=== PATIENT | male | born 1940 | race Caucasian/White ===

== ENCOUNTER 2017-03-20 17:36 | Inpatient (IN) | payer MEDICARE ==
[2017-03-20 17:37] VITALS: BMI 28.4
[2017-03-20] MEDS ORDERED: Sodium Chloride 0.9% 500 ML IV ONE (18:22)
[2017-03-20 18:47] LABS: VENOUS BLOOD GAS BASE EXCESS 6.6 mmol/L (0.0-2.0); VENOUS BLOOD GAS PCO2 50 mmHg (40-60); VENOUS BLOOD PH 7.42 (7.32-7.43)
[2017-03-20 18:49] LABS: BASO % 0.4 % (0.0-2.0); HEMATOCRIT 42.2 % (35.0-51.0); LYMPH # 0.8 K/uL (1.0-4.3); LYMPH % 6.6 % (20.0-40.0); MEAN CELL VOLUME 99.2 fl (80.0-94.0); MEAN CORPUSCULAR HEMOGLOBIN 32.8 pg (27.0-31.0); MEAN PLATELET VOLUME 8.3 fl (7.2-11.7); MONO # 0.7 K/uL (0.0-0.8); MONO % 5.6 % (0.0-10.0); NEUT # 10.6 K/uL (1.8-7.0); NEUT % 87.4 % (50.0-75.0); PLATELET COUNT 208 K/uL (130-400); RED CELL DISTRIBUTION WIDTH 13.6 % (11.5-14.5); WHITE BLOOD COUNT 12.1 K/uL (4.8-10.8)
--- NOTE | 2017-03-20 19:02 | ED PDOC ---
HPI: Neurologic - General Chief Complaint (Provider): generalized weakness Source: patient - History of Present Illness Timing/Duration: other (2 days) Associated Symptoms: fever/chills, trouble walking, weakness. denies: confusion , loss of consciousness, nausea/vomiting, numbness in legs/feet, vision changes Additional Complaint(s): Pt is a 76 yo M with PMH DM2, BPH, HTN, HLD, TIA? (in 1996? pt does not recall) presenting to ED after being sent from PMD's office by PMD Dr. Farmer. Pt complains of generalized weakness x2 days, and reports two falls this morning while inside and outside of the grocery store; pt states that he felt "weak" and "lost balance and coordination." Pt did not hit his head when he fell, did not lose consciousness either fall; was caught one time by friend and helped up the second time. When pt went to see PMD, he was told he looks pale and not well /not like himself, and to come to the ED. Denies chest pain, sob, blurry vision/changes in vision, abdominal pain, nausea , vomiting, diarrhea, issues with urination like burning or pain or any other general complaints aside from weakness. Spoke to pt's PMD, who mentioned that pt also spoke of darker stools at visit. <Lali Alvarenga - Last Filed: 03/20/17 22:35> <Michael Ramirez - Last Filed: 03/20/17 23:02> - General Time Seen by Provider: 03/20/17 17:58 Chief Complaint (Nursing): Abdominal Pain - History of Present Illness Allergies/Adverse Reactions: Allergies chlorpheniramine [From Contac Cold-Flu Day and Night] Allergy (Verified 17:51) RASH phenylephrine HCl [From Contac Cold-Flu Day and Night] Allergy (Verified 17:51) RASH Home Medications: Ambulatory Orders No Known Home Med 03/20/17 Supervising Attending Note - Attestation: I have personally seen and examined this patient.: Yes I have fully participated in the care of the patient.: Yes I have reviewed all pertinent clinical information, including history, physical exam and plan: Yes - Notes: Notes:: PT. seen and examined at bedside, explained results of imaging. Case discussed with Dr. Farmer who agrees to admission. Dx: RLL PNA <Michael Ramirez - Last Filed: 03/20/17 23:02> Past Medical History Vital Signs: Last Vital Signs Temp 102.3 F H 03/20/17 17:48 Pulse 78 03/20/17 17:48 Resp 20 03/20/17 17:48 BP 115/53 L 03/20/17 17:48 Pulse Ox 95 03/20/17 17:48 - Medical History PMH: Benign Prostatic Hyperplasia, Diabetes, Fractures (1950 orif right arm), HTN, Hypercholesterolemia, Sleep Apnea (c pap does not use), TIA (11 years ago) Denies: Chronic Kidney Disease - Surgical History Other surgeries: bilateral cataract - Family History Family History: States: [place] (brother, age 50), Other Denies: Stroke Other Family History: father: prostate cancer - Social History Ex-Smoker (has not smoked in the last 12 months): Yes (has not smoked in 15 yrs) Alcohol: Social Drugs: Denies - Immunization History Hx Tetanus Toxoid Vaccination: No Hx Influenza Vaccination: No Hx Pneumococcal Vaccination: No <Lali Alvarenga - Last Filed: 03/20/17 22:35> Vital Signs: Last Vital Signs Temp 98.3 F 03/20/17 22:53 Pulse 59 L 03/20/17 22:53 Resp 20 03/20/17 22:53 BP 117/66 03/20/17 22:53 Pulse Ox 97 03/20/17 22:53 <Michale Ramirez - Last Filed: 03/20/17 23:02> - Home Medications Home Medications: Ambulatory Orders Medication Instructions Recorded No Known Home Med 03/20/17 - Allergies Allergies/Adverse Reactions: Allergies Allergy/AdvReac Type Severity Reaction Status Date / Time chlorpheniramine Allergy RASH Verified 03/20/17 17:51 [From Contac Cold-Flu Day and Night] phenylephrine HCl Allergy RASH Verified 03/20/17 17:51 [From Contac Cold-Flu Day and Night] Review of Systems ROS Statement: Except As Marked, All Systems Reviewed And Found Negative Constitutional: Positive for: Fever, Chills Eyes: Positive for: Vision Change Neurological: Positive for: Weakness, Incoordination <Lali Alvarenga - Last Filed: 03/20/17 22:35> Physical Exam - Reviewed Vital Signs Reviewed: Yes - Physical Exam Head Exam: Positive for: ATRAUMATIC, NORMAL INSPECTION Skin: Positive for: Warm, Dry. Negative for: Diaphoresis Eye Exam: Positive for: EOMI, PERRL ENT: Positive for: Normal ENT Inspection. Negative for: Pharyngeal Erythema Neck: Positive for: Normal, Painless ROM Cardiovascular/Chest: Positive for: Regular Rate, Rhythm. Negative for: Edema, Murmur Respiratory: Positive for: Normal Breath Sounds. Negative for: Accessory Muscle Use, Wheezing, Respiratory Distress Gastrointestinal/Abdominal: Positive for: Normal Exam, Bowel Sounds, Soft. Negative for: Tenderness, Mass, Distended, Rebound Back: Positive for: Normal Inspection Rectal: Positive for: Deferred Extremity: Positive for: Other (strength 5/5 in all 4 extemities while lying down). Negative for: Tenderness, Pedal Edema, Calf Tenderness, Deformity Neurologic/Psych: Positive for: Alert, Oriented <Lali Alvarenga - Last Filed: 03/20/17 22:35> - Laboratory Results Result Diagrams: 03/20/17 18:40 03/20/17 18:40 - ECG O2 Sat by Pulse Oximetry: 95 - Progress ED Course And Treament: Pt seen and evaluated, appears very tired. Vital signs reviewed- pt is febrile, otherwise VS stable Head CT w/o contrast CXR 2 view VBG CBC w/ diff CMP Lipase Magnesium Phosphorous Urinalysis Urine Cx Blood Cx FOBT Tylenol 650mg NS 500ml bolus CBC w/ diff: WBC 12.1, 88% neutrophils CXR: Abnormal focal increased density seen in right lower lung laterally, measuring up to at least 6 cm in size. This is suspicious for an infiltrate/ pneumonia. Left lung appears clear. No evidence of diffuse pulmonary vascular congestion. Head CT: no significant acute abnormality, no acute hemorrhage, no evidence of significant mass effect. focal area of low density seen in right centrum semi- ovale, most compatible with old/chronic lacunar infarct, diffuse age related cortical atrophy and ventriculomegaly. Pt given 2gm dose ceftriaxone; to start azithromycin in am. Hydration with NS @ 250 ml/hr. Case discussed in ED with Dr. Ramirez, who also discussed findings/results discussed with pt's PMD, Dr. Farmer. Pt to be admitted to telemetry unit. <Lali Alvarenga - Last Filed: 03/20/17 22:35> - Laboratory Results Result Diagrams: 03/20/17 18:40 03/20/17 18:40 <Michael Ramirez - Last Filed: 03/20/17 23:02> Disposition - Patient ED Disposition Is Patient to be Admitted: Yes - Disposition Disposition Time: 22:29 <Lali Alvarenga - Last Filed: 03/20/17 22:35> <Michael Ramirez - Last Filed: 03/20/17 23:02> - Clinical Impression Clinical Impression: Pneumonia - Disposition Condition: STABLE
[2017-03-20 19:04] LABS: ALB/GLOB RATIO 1.5 (1.0-2.1); ALKALINE PHOSPHATASE 67 U/L (38-126); ALT/SGPT 57 U/L (21-72); AST/SGOT 57 U/L (17-59); BILIRUBIN,TOTAL 0.8 mg/dl (0.2-1.3); BLOOD UREA NITROGEN 24 mg/dl (9-20); CARBON DIOXIDE 28 mmol/L (22-30); CHLORIDE 94 mmol/L (98-107); GFR AFRICAN-AMERICAN > 60; GLUCOSE,RANDOM 120 mg/dL (75-110); LIPASE 72 U/L (23-300); MAGNESIUM 2.4 MG/DL (1.6-2.3); PHOSPHOROUS 3.5 mg/dl (2.5-4.5); POTASSIUM 3.5 MMOL/L (3.6-5.0); SODIUM 134 mmol/l (132-148)
[2017-03-20 19:28] LABS: NEUTROPHIL 88 % (42-75); TOTAL CELLS COUNTED 100
[2017-03-20 20:06] LABS: URINE BACTERIA RARE (<OCC); URINE BILIRUBIN NEGATIVE (NEGATIVE); URINE BLOOD MODERATE (NEGATIVE); URINE COLOR YELLOW (YELLOW); URINE GLUCOSE (UA) >=500 mg/dL (Normal); URINE KETONE TRACE mg/dL (NEGATIVE); URINE LEUKOCYTE ESTERASE NEG Leu/uL (Negative); URINE PROTEIN 100 mg/dL (NEGATIVE); URINE UROBILINOGEN 0.2-1.0 mg/dL (0.2-1.0); WBC URINE 2 /hpf (0-5)
[2017-03-20 20:07] LABS: RBC URINE 9 /hpf (0-3)
--- NOTE | 2017-03-20 20:50 | CT ---
EXAM: CT Head Without Intravenous Contrast EXAM DATE/TIME: 03/20/2017 6:30 PM CLINICAL HISTORY: 76 years old, male; Signs and symptoms; Dizziness TECHNIQUE: Axial computed tomography images of the head/brain without intravenous contrast. All CT scans at this facility use one or more dose reduction techniques, viz.: automated exposure control; ma/kV adjustment per patient size (including targeted exams where dose is matched to indication; i.e. head); or iterative reconstruction technique. Coronal and sagittal reformatted images were created and reviewed. COMPARISON: No relevant prior studies available. FINDINGS: BRAIN: Focal area of low density seen in the right centrum semi-ovale, most compatible with an old/chronic lacunar infarct Physiologic basal ganglia calcification. Diffuse, age-related cortical atrophy and ventriculomegaly. No significant acute abnormality identified. No acute hemorrhage seen within the brain. No acute extra-axial fluid collections visualized. No evidence of significant mass effect within the brain. No CT findings to suggest an acute, large territorial infarct, however, small or early acute infarcts may not be visible on CT. VENTRICLES: See above. BONES/JOINTS: No acute fractures or other acute bony abnormality noted. SOFT TISSUES: No acute abnormality of the visualized soft tissues is seen. VASCULATURE: Atherosclerotic calcification. SINUSES: Visualized paranasal sinuses appear clear. MASTOID AIR CELLS: Mastoid air cells appear clear. IMPRESSION: - No acute findings seen within the brain. - See above for remaining findings.
--- NOTE | 2017-03-20 20:53 | RAD ---
EXAM: XR Chest, 2 Views EXAM DATE/TIME: 03/20/2017 6:21 PM CLINICAL HISTORY: 76 years old, male; Signs and symptoms; Other: Abdominal pain/loss of balance; Additional info: Fever TECHNIQUE: Frontal and lateral views of the chest. COMPARISON: No relevant prior studies available. FINDINGS: LIMITATIONS: Mild /motion artifact. LUNGS: Abnormal focal increased density seen in the right lower lung laterally, measuring up to at least 6 cm in size. This is suspicious for an infiltrate/pneumonia. Left lung appears clear. No evidence of diffuse pulmonary vascular congestion. PLEURAL SPACE: No pneumothorax or pleural effusions seen. HEART: Heart does not appear significantly enlarged. MEDIASTINUM: See below. BONES/JOINTS: Bony structures appear demineralized. VASCULATURE: Thoracic aorta appears moderately ectatic. IMPRESSION: - Findings highly suspicious for a focal infiltrate/pneumonia in the right lower lung laterally. Recommend short-term radiographic followup to document clearing. - See above for remaining findings.
[2017-03-20] MEDS ORDERED: cefTRIAXone 2 GM in Sodium Chloride 0.9% 100 ML IVPB STA (20:56)
[2017-03-20] MEDS: Sodium Chloride 0.9% 1,000 ML IV SCH (21:12)
[2017-03-21] MEDS: Sodium Chloride 0.9% 1,000 ML IV SCH ×2 (01:24→05:54)
[2017-03-21] MEDS: Albuterol-Ipratrop 3 mg / 0.5 (3 ml) UD INH SCH ×3 (11:10→19:17)
[2017-03-21] MEDS: Azithromycin 500 MG in Sodium Chloride 0.9% 250 ML IVPB SCH (15:17)
[2017-03-22] MEDS: Albuterol-Ipratrop 3 mg / 0.5 (3 ml) UD INH SCH ×4 (02:35→19:14)
[2017-03-22 08:12] LABS: HEMATOCRIT 36.6 % (35.0-51.0); MEAN CELL VOLUME 98.6 fl (80.0-94.0); MEAN CORPUSCULAR HEMOGLOBIN 33.9 pg (27.0-31.0); MEAN CORPUSCULAR HGB CONC 34.3 g/dL (33.0-37.0); WHITE BLOOD COUNT 9.2 K/uL (4.8-10.8)
[2017-03-22] MEDS: Azithromycin 500 MG in Sodium Chloride 0.9% 250 ML IVPB SCH (10:59)
--- NOTE | 2017-03-22 11:16 | CP.PCM.HP ---
History of Present Illness - History of Present Illness History of Present Illness: This is a 76 y/o male admitted for pneumonia. He came to my office yesterday with generalized weakness and gait dysfunction and decreased appetite. He had low grade fever with very minimal cough. He was noted to have elevated WBC and CXR showed right lower and middle lobe infiltrate. Has a hx of HTN and hyperlipidemiaa nd OA knees and lower back. Present on Admission - Present on Admission Any Indicators Present on Admission: No History of DVT/PE: No History of Uncontrolled Diabetes: No Urinary Catheter: No Decubitus Ulcer Present: No Review of Systems - Constitutional Constitutional: Fatigue, Headache, Malaise, Weakness Past Patient History - Past Medical History & Family History Past Medical History?: Yes - Past Social History Smoking Status: Former Smoker - CARDIAC Hx Hypercholesterolemia: Yes Hx Hypertension: Yes - PULMONARY Hx Sleep Apnea: Yes (c pap does not use) - NEUROLOGICAL Hx Transient Ischemic Attacks (TIA): Yes (11 years ago) - HEENT Hx Cataracts: Yes - RENAL Hx Chronic Kidney Disease: No - ENDOCRINE/METABOLIC Hx Endocrine Disorders: Yes Hx Diabetes Mellitus Type 2: Yes - HEMATOLOGICAL/ONCOLOGICAL Hx Blood Disorders: No - INTEGUMENTARY Hx Dermatological Problems: No - MUSCULOSKELETAL/RHEUMATOLOGICAL Hx Falls: Yes (fell twice prior to admission) Hx Fractures: Yes (1950 orif right arm) - GASTROINTESTINAL Hx Gastrointestinal Disorders: No - GENITOURINARY/GYNECOLOGICAL Hx Prostate Problems: Yes (bph) - PSYCHIATRIC Hx Substance Use: No - SURGICAL HISTORY Hx Surgeries: Yes Hx Cataract Extraction: Yes (CATARACT EXT. RT. EYE WITH IOLI) Hx Open Reduction Internal Fixation: Yes (right arm orif 1950 removal hardware) Other/Comment: colonoscopy - ANESTHESIA Hx Anesthesia: Yes Hx Anesthesia Reactions: No Hx Malignant Hyperthermia: No Meds Home Medications: Home Medication List Medication Instructions Recorded Confirmed Type Acetaminophen [Tylenol 325mg tab] 650 mg PO Q6 PRN tab 03/26/17 Rx Albuterol/Ipratropium [Duoneb 3 3 ml INH RQ6 03/26/17 Rx mg/0.5 mg (3 ml) UD] Azithromycin 500MG/NS 250ml 500 mg IV DAILY #7 bag 03/26/17 Rx [Zithromax 500mg in NS] Ibuprofen [Motrin Tab] 600 mg PO Q6 PRN tab 03/26/17 Rx Losartan [Cozaar] 100 mg PO DAILY tab 03/26/17 Rx Sodium Chloride for Inhalation 4 ml IH ONCE PRN 03/26/17 Rx [Sodium Chloride 3% for Inhalation] amLODIPine [Norvasc] 5 mg PO DAILY tab 03/26/17 Rx cefTRIAXone 1 gm [Rocephin 1 gram 1 gm IVPB DAILY #7 bag 03/26/17 Rx IVPB] guaiFENesin/Dextromethorphan 1 tab PO BID tab 03/26/17 Rx [Mucinex-DM 600-30 mg] Allergies/Adverse Reactions: Allergies Allergy/AdvReac Type Severity Reaction Status Date / Time chlorpheniramine Allergy RASH Verified 03/20/17 17:51 [From Contac Cold-Flu Day and Night] phenylephrine HCl Allergy RASH Verified 03/20/17 17:51 [From Contac Cold-Flu Day and Night] Physical Exam - Head Exam Head Exam: NORMAL INSPECTION - Eye Exam Eye Exam: Normal appearance - ENT Exam ENT Exam: Mucous Membranes Moist - Respiratory Exam Respiratory Exam: Clear to Auscultation Bilateral - Cardiovascular Exam Cardiovascular Exam: REGULAR RHYTHM - GI/Abdominal Exam GI & Abdominal Exam: Normal Bowel Sounds - Neurological Exam Neurological exam: CN II-XII Intact, Oriented x3 - Psychiatric Exam Psychiatric exam: Normal Mood Results - Vital Signs Recent Vital Signs: Last Vital Signs Temp 98.5 F 03/22/17 09:00 Pulse 64 03/22/17 09:00 Resp 20 03/22/17 09:00 BP 116/60 03/22/17 09:11 Pulse Ox 96 03/22/17 09:00 - Labs Result Diagrams: 03/24/17 05:05 03/20/17 18:40 Labs: Laboratory Results - last 24 hr 03/21/17 03/22/17 03/22/17 10:59 05:46 06:00 WBC 9.2 RBC 3.71 L Hgb 12.6 Hct 36.6 MCV 98.6 H MCH 33.9 H MCHC 34.3 RDW 14.0 Plt Count 213 POC Glucose (mg/dL) 190 H 113 H Assessment & Plan (1) CAP (community acquired pneumonia) Status: Acute Priority: High (2) Hypertension Status: Acute - Assessment and Plan (Free Text) Plan: start IV antibiotics Rocephin and Zithromax Pulmonary consult cont tx
[2017-03-23] MEDS: Albuterol-Ipratrop 3 mg / 0.5 (3 ml) UD INH SCH ×4 (01:00→19:29)
[2017-03-23] MEDS: Azithromycin 500 MG in Sodium Chloride 0.9% 250 ML IVPB SCH (09:24)
[2017-03-23] MEDS ORDERED: Pneumococcal 23-Valent Vaccine IM ONE (10:56)
--- NOTE | 2017-03-23 13:23 | RAD ---
HISTORY: f/u pna COMPARISON: Prior chest radiographs 03/20/2017 TECHNIQUE: Chest PA and lateral FINDINGS: LUNGS: Right middle lobe infiltrate appears to have increased, appearing moderate in severity. No left-sided infiltrate. Right apex and base remain clear. PLEURA: No significant pleural effusion identified. No pneumothorax apparent. CARDIOVASCULAR: Normal. OSSEOUS STRUCTURES: No significant abnormalities. VISUALIZED UPPER ABDOMEN: Normal. OTHER FINDINGS: None. IMPRESSION: There has been the mild but significant increase in right middle lobe infiltrate. Remainder the examination is stable in the interval.
[2017-03-24] MEDS: Albuterol-Ipratrop 3 mg / 0.5 (3 ml) UD INH SCH ×4 (01:00→19:27)
[2017-03-24 06:28] LABS: MEAN CELL VOLUME 98.6 fl (80.0-94.0); MEAN CORPUSCULAR HEMOGLOBIN 33.5 pg (27.0-31.0); MEAN CORPUSCULAR HGB CONC 33.9 g/dL (33.0-37.0); RED CELL DISTRIBUTION WIDTH 14.5 % (11.5-14.5); WHITE BLOOD COUNT 8.3 K/uL (4.8-10.8)
[2017-03-24] MEDS: Azithromycin 500 MG in Sodium Chloride 0.9% 250 ML IVPB SCH (09:19)
--- NOTE | 2017-03-24 11:34 | CP.PCM.PN ---
<Acacia Jorge - Last Filed: 03/24/17 11:28> Subjective - Date & Time of Evaluation Date of Evaluation: 03/24/17 Time of Evaluation: 09:00 - Subjective Subjective: patient seen and examined with attending feeling better this morning afebrile, VS stable WNL no events overnight Objective - Vital Signs/Intake and Output Vital Signs (last 24 hours): Temp Pulse Resp BP Pulse Ox 98.1 F 68 18 119/62 97 03/24/17 09:00 03/24/17 09:20 03/24/17 09:00 03/24/17 09:20 03/24/17 09:00 - Medications Medications: Current Medications Acetaminophen (Tylenol 325mg Tab) 650 mg PO Q6 PRN PRN Reason: Fever >100.4 F Last Admin: 03/21/17 23:23 Dose: 650 mg Albuterol/Ipratropium (Duoneb 3 Mg/0.5 Mg (3 Ml) Ud) 3 ml INH RQ6 [facility] Last Admin: 03/24/17 07:28 Dose: 3 ml Amlodipine Besylate (Norvasc) 5 mg PO DAILY [facility] Last Admin: 03/24/17 09:20 Dose: 5 mg Azithromycin 500 mg/ Sodium (Chloride) 250 mls @ 250 mls/hr IVPB DAILY [facility] Last Admin: 03/24/17 09:19 Dose: 250 mls/hr Ceftriaxone Sodium 1 gm/ (Sodium Chloride) 100 mls @ 100 mls/hr IVPB DAILY [facility] Last Admin: 03/24/17 09:19 Dose: 100 mls/hr Ibuprofen (Motrin Tab) 600 mg PO Q6 PRN PRN Reason: Fever >100.4 F Last Admin: 03/21/17 04:49 Dose: 600 mg Losartan Potassium (Cozaar) 100 mg PO DAILY [facility] Last Admin: 03/24/17 09:20 Dose: 100 mg - Labs Labs: 03/24/17 05:05 - Constitutional Appears: No Acute Distress - ENT Exam ENT Exam: Mucous Membranes Moist - Respiratory Exam Respiratory Exam: NORMAL BREATHING PATTERN - Cardiovascular Exam Cardiovascular Exam: REGULAR RHYTHM, +S1, +S2 - Extremities Exam Extremities Exam: Normal Inspection. absent: Calf Tenderness, Pedal Edema - Neurological Exam Neurological Exam: Alert, Awake, Oriented x3 - Psychiatric Exam Psychiatric exam: Normal Affect, Normal Mood - Skin Skin Exam: Dry, Intact, Normal Color Assessment and Plan - Assessment and Plan (Free Text) Plan: Right MIddle lobe infiltrate -clinically improving -repeat CXR on 03/23/17 showed increased in right middle lobe infiltrate -f/u chest CT c/w antibiotics c/w duoneb PRN Blood Cx showed no growth after 3 days HTN c/w current meds f/u BP DVT prophilaxis ambulating <Nicholas Farmer - Last Filed: 03/30/17 10:15> Objective - Vital Signs/Intake and Output Vital Signs (last 24 hours): Temp Pulse Resp BP Pulse Ox 97.9 F 66 18 117/70 96 03/30/17 08:11 03/30/17 08:11 03/30/17 08:11 03/30/17 08:11 03/30/17 08:11 - Medications Medications: Current Medications Acetaminophen (Tylenol 325mg Tab) 650 mg PO Q6 PRN PRN Reason: Fever >100.4 F Last Admin: 03/21/17 23:23 Dose: 650 mg Albuterol/Ipratropium (Duoneb 3 Mg/0.5 Mg (3 Ml) Ud) 3 ml INH RQ6 [facility] Last Admin: 03/30/17 07:22 Dose: 3 ml Amlodipine Besylate (Norvasc) 5 mg PO DAILY [facility] Last Admin: 03/29/17 09:15 Dose: 5 mg Guaifenesin/Dextromethorphan (Mucinex-Dm 600-30 Mg) 1 tab PO BID [facility] Last Admin: 03/29/17 17:34 Dose: 1 tab Azithromycin 500 mg/ Sodium (Chloride) 250 mls @ 250 mls/hr IVPB DAILY [facility] Last Admin: 03/29/17 09:14 Dose: 250 mls/hr Ceftriaxone Sodium 1 gm/ (Sodium Chloride) 100 mls @ 100 mls/hr IVPB DAILY [facility] Last Admin: 03/29/17 09:13 Dose: 100 mls/hr Ibuprofen (Motrin Tab) 600 mg PO Q6 PRN PRN Reason: Fever >100.4 F Last Admin: 03/21/17 04:49 Dose: 600 mg Losartan Potassium (Cozaar) 100 mg PO DAILY [facility] Last Admin: 03/29/17 09:16 Dose: 100 mg - Labs Labs: 03/24/17 05:05 Assessment and Plan (1) CAP (community acquired pneumonia) Status: Acute (2) Hypertension Status: Acute - Assessment and Plan (Free Text) Plan: I was present during evaluation and discussed with Dr Jorge re plans of care and tx. Nicholas Farmer M.D.
--- NOTE | 2017-03-24 13:26 | CT ---
PROCEDURE: CT Chest without contrast HISTORY: f/u worsening pna COMPARISON: 06/11/2010 TECHNIQUE: Contiguous axial images were obtained through the chest without intravenous contrast enhancement. Sagittal and coronal reconstructions were performed. Radiation dose (DLP): 613.28 mGy-cm. This CT exam was performed using one or more of the following dose reduction techniques: Automated exposure control, adjustment of the mA and/or kV according to patient size, and/or use of iterative reconstruction technique. FINDINGS: LUNGS: Extensive right middle lobe infiltrate with areas of gregg consolidation. Patchy foci of opacity in the apical segment right upper lobe and in the apical posterior segment of the left upper lobe. Minimal bilateral lower lobe compressive atelectasis secondary to pleural effusion. MEDIASTINUM: Unremarkable thoracic aorta. No aneurysm. Mild cardiomegaly. Coronary arterial calcification. Main pulmonary artery unremarkable. No vascular congestion. Subcentimeter mediastinal nodes. No hilar lymphadenopathy. PLEURA: Small right and trace left pleural effusion. No pneumothorax. BONES: No fracture. No destructive lesion. UPPER ABDOMEN: 1.5 cm right adrenal mass measuring -13 Hounsfield units, consistent with adrenal adenoma. This is unchanged from 06/11/2010. OTHER FINDINGS: None. IMPRESSION: Extensive right middle lobe infiltrate. Patchy foci of opacity in both right upper lobes. Small right and trace left pleural effusion with minimal bilateral lower lobe compressive atelectasis. Incidental right adrenal adenoma, 1.5 cm.
[2017-03-24] MEDS ORDERED: Tuberculin 5 Units/0.1 ml Inj ID ONE (15:31)
[2017-03-25] MEDS: Albuterol-Ipratrop 3 mg / 0.5 (3 ml) UD INH SCH ×4 (01:00→19:09)
[2017-03-25] MEDS: Azithromycin 500 MG in Sodium Chloride 0.9% 250 ML IVPB SCH (09:30)
--- NOTE | 2017-03-25 10:03 | CP.PCM.PN ---
Subjective - Date & Time of Evaluation Date of Evaluation: 03/22/17 Time of Evaluation: 09:40 - Subjective Subjective: Patient continues to be weak Has slight cough Noted pneumonia on CXR Has mild fever Has no chest pain or SOB. Objective - Vital Signs/Intake and Output Vital Signs (last 24 hours): Temp Pulse Resp BP Pulse Ox 98.4 F 68 18 127/67 96 03/25/17 08:06 03/25/17 09:28 03/25/17 08:06 03/25/17 09:28 03/25/17 08:06 - Medications Medications: Current Medications Acetaminophen (Tylenol 325mg Tab) 650 mg PO Q6 PRN PRN Reason: Fever >100.4 F Last Admin: 03/21/17 23:23 Dose: 650 mg Albuterol/Ipratropium (Duoneb 3 Mg/0.5 Mg (3 Ml) Ud) 3 ml INH RQ6 [facility] Last Admin: 03/25/17 07:51 Dose: 3 ml Amlodipine Besylate (Norvasc) 5 mg PO DAILY [facility] Last Admin: 03/25/17 09:28 Dose: 5 mg Azithromycin 500 mg/ Sodium (Chloride) 250 mls @ 250 mls/hr IVPB DAILY [facility] Last Admin: 03/25/17 09:30 Dose: 250 mls/hr Ceftriaxone Sodium 1 gm/ (Sodium Chloride) 100 mls @ 100 mls/hr IVPB DAILY [facility] Last Admin: 03/25/17 09:29 Dose: 100 mls/hr Ibuprofen (Motrin Tab) 600 mg PO Q6 PRN PRN Reason: Fever >100.4 F Last Admin: 03/21/17 04:49 Dose: 600 mg Losartan Potassium (Cozaar) 100 mg PO DAILY [facility] Last Admin: 03/25/17 09:27 Dose: 100 mg - Labs Labs: 03/24/17 05:05 - Head Exam Head Exam: NORMAL INSPECTION - Eye Exam Eye Exam: Normal appearance - ENT Exam ENT Exam: Mucous Membranes Moist - Respiratory Exam Respiratory Exam: Decreased Breath Sounds, Rhonchi - Cardiovascular Exam Cardiovascular Exam: REGULAR RHYTHM - GI/Abdominal Exam GI & Abdominal Exam: Normal Bowel Sounds - Neurological Exam Neurological Exam: Alert, Awake, Oriented x3 Assessment and Plan (1) CAP (community acquired pneumonia) Status: Acute (2) Hypertension Status: Acute - Assessment and Plan (Free Text) Plan: Cont meds conttx\ Resp tx neb tx start Phys therapy
--- NOTE | 2017-03-25 10:04 | CP.PCM.PN ---
Subjective - Date & Time of Evaluation Date of Evaluation: 03/23/17 Time of Evaluation: 09:50 - Subjective Subjective: Patient feels a lot better But noted to have more rhonchi on the right mid lobe Has slight cough Has no fever. Objective - Vital Signs/Intake and Output Vital Signs (last 24 hours): Temp Pulse Resp BP Pulse Ox 98.4 F 68 18 127/67 96 03/25/17 08:06 03/25/17 09:28 03/25/17 08:06 03/25/17 09:28 03/25/17 08:06 - Medications Medications: Current Medications Acetaminophen (Tylenol 325mg Tab) 650 mg PO Q6 PRN PRN Reason: Fever >100.4 F Last Admin: 03/21/17 23:23 Dose: 650 mg Albuterol/Ipratropium (Duoneb 3 Mg/0.5 Mg (3 Ml) Ud) 3 ml INH RQ6 [facility] Last Admin: 03/25/17 07:51 Dose: 3 ml Amlodipine Besylate (Norvasc) 5 mg PO DAILY [facility] Last Admin: 03/25/17 09:28 Dose: 5 mg Azithromycin 500 mg/ Sodium (Chloride) 250 mls @ 250 mls/hr IVPB DAILY [facility] Last Admin: 03/25/17 09:30 Dose: 250 mls/hr Ceftriaxone Sodium 1 gm/ (Sodium Chloride) 100 mls @ 100 mls/hr IVPB DAILY [facility] Last Admin: 03/25/17 09:29 Dose: 100 mls/hr Ibuprofen (Motrin Tab) 600 mg PO Q6 PRN PRN Reason: Fever >100.4 F Last Admin: 03/21/17 04:49 Dose: 600 mg Losartan Potassium (Cozaar) 100 mg PO DAILY [facility] Last Admin: 03/25/17 09:27 Dose: 100 mg - Labs Labs: 03/24/17 05:05 - Head Exam Head Exam: NORMAL INSPECTION - Eye Exam Eye Exam: Normal appearance - ENT Exam ENT Exam: Mucous Membranes Moist - Respiratory Exam Respiratory Exam: Decreased Breath Sounds, Rhonchi, NORMAL BREATHING PATTERN - Cardiovascular Exam Cardiovascular Exam: REGULAR RHYTHM - GI/Abdominal Exam GI & Abdominal Exam: Normal Bowel Sounds Assessment and Plan (1) CAP (community acquired pneumonia) Status: Acute (2) Hypertension Status: Acute - Assessment and Plan (Free Text) Plan: Contmeds Cont tx Cont PT CT scan of the chest
[2017-03-25] MEDS ORDERED: Sodium Chloride 3% for Inhalation 4 ML VIAL.NEB IH PRN (10:55)
--- NOTE | 2017-03-25 11:25 | CP.PCM.PN ---
<Acacia Jorge - Last Filed: 03/25/17 11:19> Subjective - Date & Time of Evaluation Date of Evaluation: 03/25/17 Time of Evaluation: 09:00 - Subjective Subjective: patient seen and examined with attending still c/o of mild SOB, and a dry cough that started last night Afebrile, VS stable WNL no events overnight Objective - Vital Signs/Intake and Output Vital Signs (last 24 hours): Temp Pulse Resp BP Pulse Ox 98.4 F 68 18 127/67 96 03/25/17 08:06 03/25/17 09:28 03/25/17 08:06 03/25/17 09:28 03/25/17 08:06 - Medications Medications: Current Medications Acetaminophen (Tylenol 325mg Tab) 650 mg PO Q6 PRN PRN Reason: Fever >100.4 F Last Admin: 03/21/17 23:23 Dose: 650 mg Albuterol/Ipratropium (Duoneb 3 Mg/0.5 Mg (3 Ml) Ud) 3 ml INH RQ6 [facility] Last Admin: 03/25/17 07:51 Dose: 3 ml Amlodipine Besylate (Norvasc) 5 mg PO DAILY [facility] Last Admin: 03/25/17 09:28 Dose: 5 mg Guaifenesin/Dextromethorphan (Mucinex-Dm 600-30 Mg) 1 tab PO BID [facility] Azithromycin 500 mg/ Sodium (Chloride) 250 mls @ 250 mls/hr IVPB DAILY [facility] Last Admin: 03/25/17 09:30 Dose: 250 mls/hr Ceftriaxone Sodium 1 gm/ (Sodium Chloride) 100 mls @ 100 mls/hr IVPB DAILY [facility] Last Admin: 03/25/17 09:29 Dose: 100 mls/hr Ibuprofen (Motrin Tab) 600 mg PO Q6 PRN PRN Reason: Fever >100.4 F Last Admin: 03/21/17 04:49 Dose: 600 mg Losartan Potassium (Cozaar) 100 mg PO DAILY [facility] Last Admin: 03/25/17 09:27 Dose: 100 mg - Labs Labs: 03/24/17 05:05 - Constitutional Appears: No Acute Distress - ENT Exam ENT Exam: Mucous Membranes Moist - Respiratory Exam Respiratory Exam: Rales (right middle and lower lobes, CTA od left lung field), NORMAL BREATHING PATTERN. absent: Rhonchi, Wheezes - Cardiovascular Exam Cardiovascular Exam: REGULAR RHYTHM, +S1, +S2 - GI/Abdominal Exam GI & Abdominal Exam: Soft, Normal Bowel Sounds. absent: Distended, Guarding, Rigid, Tenderness - Extremities Exam Extremities Exam: Normal Inspection. absent: Calf Tenderness, Pedal Edema - Neurological Exam Neurological Exam: Alert, Awake, Oriented x3 - Skin Skin Exam: Dry, Intact, Normal Color Assessment and Plan - Assessment and Plan (Free Text) Plan: Community acquire pneumonia -afebrile, clinically stable -repeat CXR on 03/23/17 showed increased in right middle lobe infiltrate -chest CT on 03/24/17 showed extensive right middle lobe infiltrate, w/right upper lobe opacity. c/w antibiotics c/w duoneb PRN f/u PPD and quentiferon test f/u legionella and Mycoplasma Ag Blood Cx showed no growth after 4 days Pulmunology consult, f/u recommendations HTN c/w current meds f/u BP DVT prophilaxis ambulating <Nicholas Farmer - Last Filed: 03/30/17 10:16> Objective - Vital Signs/Intake and Output Vital Signs (last 24 hours): Temp Pulse Resp BP Pulse Ox 97.9 F 66 18 117/70 96 03/30/17 08:11 03/30/17 08:11 03/30/17 08:11 03/30/17 08:11 03/30/17 08:11 - Medications Medications: Current Medications Acetaminophen (Tylenol 325mg Tab) 650 mg PO Q6 PRN PRN Reason: Fever >100.4 F Last Admin: 03/21/17 23:23 Dose: 650 mg Albuterol/Ipratropium (Duoneb 3 Mg/0.5 Mg (3 Ml) Ud) 3 ml INH RQ6 [facility] Last Admin: 03/30/17 07:22 Dose: 3 ml Amlodipine Besylate (Norvasc) 5 mg PO DAILY [facility] Last Admin: 03/29/17 09:15 Dose: 5 mg Guaifenesin/Dextromethorphan (Mucinex-Dm 600-30 Mg) 1 tab PO BID [facility] Last Admin: 03/29/17 17:34 Dose: 1 tab Azithromycin 500 mg/ Sodium (Chloride) 250 mls @ 250 mls/hr IVPB DAILY [facility] Last Admin: 03/29/17 09:14 Dose: 250 mls/hr Ceftriaxone Sodium 1 gm/ (Sodium Chloride) 100 mls @ 100 mls/hr IVPB DAILY [facility] Last Admin: 03/29/17 09:13 Dose: 100 mls/hr Ibuprofen (Motrin Tab) 600 mg PO Q6 PRN PRN Reason: Fever >100.4 F Last Admin: 03/21/17 04:49 Dose: 600 mg Losartan Potassium (Cozaar) 100 mg PO DAILY [facility] Last Admin: 03/29/17 09:16 Dose: 100 mg - Labs Labs: 03/24/17 05:05 Assessment and Plan (1) CAP (community acquired pneumonia) Status: Acute (2) Hypertension Status: Acute - Assessment and Plan (Free Text) Plan: I was present during evaluation and discussed with Dr Jorge re plans of care and treatment. Nicholas Farmer M.D.
[2017-03-25] MEDS: guaiFENesin-DM 600-30 mg ER Tab PO SCH ×2 (14:34→17:29)
--- NOTE | 2017-03-25 16:50 | CP.PCM.CON ---
History of Present Illness - History of Present Illness History of Present Illness: CC: Pulmonary consult for R middle lobe infiltrate. 76 y/o M, was sent to ER [facility] on 03/20/17 from her PMD office of Dr Farmer, due to weakness x 2 days [employer] with no relief, associated to loss of balance, fall x 2 in DOA with no injury reported. Worsening symptoms: Fever (102.3 in ER), chills. CXR on 03/20/17 showing: Highly suspicious for infiltrate/Pneumonia. After evaluation, Pt was admitted to telemetry with Dx of PNA. Aggravated factor: Feels very tired. Denied: LOC, confusion, numbness, CP, palpitations, AMS, n/v/d, abdominal pain, urinary symptoms, SOB, cough, sick contact, recent travel. PMHx: DMII, HTN, MR , BPH, HLD, TIA 1996, Sleep Apnea ( Not using C-PAP), Hx ORIF R Arm s/p Fx in 1950, Hx Surgery b/l Cataracts. CT Chest showed: Extensive RML infiltrate. Small R and trace left pleural effusion with minimal b/l lower lobe compressive atelectasis. R Adrenal Adenoma unchanged from 06/11/2010. Review of Systems - Constitutional Constitutional: Chills, Fever, Weakness - EENT Eyes: Other (negative) Ears: Other (negative) Nose/Mouth/Throat: Other (negative) - Cardiovascular Cardiovascular: Other (negative) - Respiratory Respiratory: Dyspnea - Gastrointestinal Gastrointestinal: Other (negative) - Genitourinary Genitourinary: Other (negative) - Musculoskeletal Musculoskeletal: As Per HPI - Integumentary Integumentary: Other (negative) - Neurological Neurological: Frequent Falls, Weakness - Psychiatric Psychiatric: Other (negative) - Endocrine Endocrine: Other (negative) - Hematologic/Lymphatic Hematologic: Other (negative) Past Patient History - Past Medical History & Family History Past Medical History?: Yes Pertinent Family History: Brother: [place] at 50 y/o, Father: Prostate Ca. - Past Social History Smoking Status: Former Smoker Alcohol: None Drugs: Denies Home Situation {Lives}: Alone - CARDIAC Hx Cardiac Disorders: Yes Hx Heart Murmur: Yes (MR ( ECHO one month ago)) Hx Hypercholesterolemia: Yes Hx Hypertension: Yes - PULMONARY Hx Respiratory Disorders: Yes Hx Sleep Apnea: Yes (c pap does not use) - NEUROLOGICAL Hx Neurological Disorder: Yes Hx Transient Ischemic Attacks (TIA): Yes (11 years ago) - HEENT Hx HEENT Problems: Yes Hx Cataracts: Yes - RENAL Hx Chronic Kidney Disease: No - ENDOCRINE/METABOLIC Hx Endocrine Disorders: Yes Hx Diabetes Mellitus Type 2: Yes - HEMATOLOGICAL/ONCOLOGICAL Hx Blood Disorders: No - INTEGUMENTARY Hx Dermatological Problems: No - MUSCULOSKELETAL/RHEUMATOLOGICAL Hx Falls: Yes (fell twice prior to admission) Hx Fractures: Yes (1950 orif right arm) - GASTROINTESTINAL Hx Gastrointestinal Disorders: No - GENITOURINARY/GYNECOLOGICAL Hx Genitourinary Disorders: Yes Hx Prostate Problems: Yes (bph) - PSYCHIATRIC Hx Psychophysiologic Disorder: No Hx Substance Use: No - SURGICAL HISTORY Hx Surgeries: Yes Hx Cataract Extraction: Yes (CATARACT EXT. RT. EYE WITH IOLI) Hx Open Reduction Internal Fixation: Yes (right arm orif 1950 removal hardware) Other/Comment: colonoscopy - ANESTHESIA Hx Anesthesia: Yes Hx Anesthesia Reactions: No Hx Malignant Hyperthermia: No Meds Home Medications: Home Medication List Medication Instructions Recorded Confirmed Type Acetaminophen [Tylenol 325mg tab] 650 mg PO Q6 PRN tab 03/26/17 Rx Albuterol/Ipratropium [Duoneb 3 3 ml INH RQ6 03/26/17 Rx mg/0.5 mg (3 ml) UD] Azithromycin 500MG/NS 250ml 500 mg IV DAILY #7 bag 03/26/17 Rx [Zithromax 500mg in NS] Ibuprofen [Motrin Tab] 600 mg PO Q6 PRN tab 03/26/17 Rx Losartan [Cozaar] 100 mg PO DAILY tab 03/26/17 Rx Sodium Chloride for Inhalation 4 ml IH ONCE PRN 03/26/17 Rx [Sodium Chloride 3% for Inhalation] amLODIPine [Norvasc] 5 mg PO DAILY tab 03/26/17 Rx cefTRIAXone 1 gm [Rocephin 1 gram 1 gm IVPB DAILY #7 bag 03/26/17 Rx IVPB] guaiFENesin/Dextromethorphan 1 tab PO BID tab 03/26/17 Rx [Mucinex-DM 600-30 mg] Allergies/Adverse Reactions: Allergies Allergy/AdvReac Type Severity Reaction Status Date / Time chlorpheniramine Allergy RASH Verified 03/20/17 17:51 [From Contac Cold-Flu Day and Night] phenylephrine HCl Allergy RASH Verified 03/20/17 17:51 [From Contac Cold-Flu Day and Night] - Medications Medications: Current Medications Acetaminophen (Tylenol 325mg Tab) 650 mg PO Q6 PRN PRN Reason: Fever >100.4 F Last Admin: 03/21/17 23:23 Dose: 650 mg Albuterol/Ipratropium (Duoneb 3 Mg/0.5 Mg (3 Ml) Ud) 3 ml INH RQ6 [facility] Last Admin: 03/25/17 13:37 Dose: 3 ml Amlodipine Besylate (Norvasc) 5 mg PO DAILY [facility] Last Admin: 03/25/17 09:28 Dose: 5 mg Guaifenesin/Dextromethorphan (Mucinex-Dm 600-30 Mg) 1 tab PO BID [facility] Last Admin: 03/25/17 14:34 Dose: 1 tab Azithromycin 500 mg/ Sodium (Chloride) 250 mls @ 250 mls/hr IVPB DAILY [facility] Last Admin: 03/25/17 09:30 Dose: 250 mls/hr Ceftriaxone Sodium 1 gm/ (Sodium Chloride) 100 mls @ 100 mls/hr IVPB DAILY [facility] Last Admin: 03/25/17 09:29 Dose: 100 mls/hr Ibuprofen (Motrin Tab) 600 mg PO Q6 PRN PRN Reason: Fever >100.4 F Last Admin: 03/21/17 04:49 Dose: 600 mg Losartan Potassium (Cozaar) 100 mg PO DAILY [facility] Last Admin: 03/25/17 09:27 Dose: 100 mg Physical Exam - Constitutional Appears: No Acute Distress - Head Exam Head Exam: NORMAL INSPECTION - Eye Exam Eye Exam: PERRL - ENT Exam ENT Exam: Normal Exam - Neck Exam Neck exam: Positive for: Normal Inspection - Respiratory Exam Respiratory Exam: Decreased Breath Sounds (b/l), Rales (R midle and lower lobe.) - Cardiovascular Exam Cardiovascular Exam: REGULAR RHYTHM, Systolic Murmur (3/6 apex- axilla) - GI/Abdominal Exam GI & Abdominal Exam: Normal Bowel Sounds, Soft - Extremities Exam Extremities exam: Positive for: normal inspection - Back Exam Back exam: NORMAL INSPECTION - Neurological Exam Neurological exam: Alert, Oriented x3 - Psychiatric Exam Psychiatric exam: Normal Mood - Skin Skin Exam: Warm Results - Vital Signs Recent Vital Signs: Last Vital Signs Temp 98 F 03/25/17 15:47 Pulse 60 03/25/17 15:47 Resp 20 03/25/17 15:47 BP 124/74 03/25/17 15:47 Pulse Ox 95 03/25/17 15:47 reviewed Neena - Labs Result Diagrams: 03/24/17 05:05 03/20/17 18:40 Labs: Laboratory Results - last 24 hr 03/24/17 03/24/17 03/24/17 12:08 16:19 21:09 POC Glucose (mg/dL) 126 H 136 H 203 H 03/25/17 03/25/17 05:28 11:10 POC Glucose (mg/dL) 93 165 H reviewed JamesPQuirino - Imaging and Cardiology Chest x-ray Status: Report reviewed by me (Neena) CT scan - chest Status: Report reviewed by me (Neena) CT scan - head Status: Report reviewed by me (Neena) Assessment & Plan (1) CAP (community acquired pneumonia) Status: Acute Priority: High - Assessment and Plan (Free Text) Plan: All blood and Urine C-S were negative. Continue Zithromax, Rocephin, Duoneb and rest of Tx, work up for atypical PNA , f/u PPD , Gold Quatiferon - Date & Time Date: 03/25/17 Time: 10:00
[2017-03-26] MEDS: Albuterol-Ipratrop 3 mg / 0.5 (3 ml) UD INH SCH ×4 (01:04→19:20)
[2017-03-26] MEDS: guaiFENesin-DM 600-30 mg ER Tab PO SCH ×2 (08:52→17:40)
[2017-03-26] MEDS: Azithromycin 500 MG in Sodium Chloride 0.9% 250 ML IVPB SCH (11:17)
--- NOTE | 2017-03-26 11:42 | CP.PCM.PCO ---
Assessment and Plan - Assessment and Plan (Free Text) Assessment: 76 yr old M with CAP, B/L pt. will require a total of 1 week IV antibiotics with Rocephin 1 gm iv daily and Zithromax 500 mg iv daily
--- NOTE | 2017-03-26 13:35 | CP.PCM.PN ---
<AniaAcacia - Last Filed: 03/26/17 13:32> Subjective - Date & Time of Evaluation Date of Evaluation: 03/26/17 Time of Evaluation: 08:25 - Subjective Subjective: patient seen and examined with attending patient feeling better this morning Denies chest pain, SOB, N/V, abdominal pain Afebrile, VS WNL no events overnight Objective - Vital Signs/Intake and Output Vital Signs (last 24 hours): Temp Pulse Resp BP Pulse Ox 97.8 F 70 18 127/69 94 L 03/26/17 12:00 03/26/17 12:00 03/26/17 12:00 03/26/17 12:00 03/26/17 12:00 Intake and Output: 03/26/17 03/26/17 06:59 18:59 Output Total 2 Balance -2 - Medications Medications: Current Medications Acetaminophen (Tylenol 325mg Tab) 650 mg PO Q6 PRN PRN Reason: Fever >100.4 F Last Admin: 03/21/17 23:23 Dose: 650 mg Albuterol/Ipratropium (Duoneb 3 Mg/0.5 Mg (3 Ml) Ud) 3 ml INH RQ6 [facility] Last Admin: 03/26/17 13:06 Dose: 3 ml Amlodipine Besylate (Norvasc) 5 mg PO DAILY [facility] Last Admin: 03/26/17 08:52 Dose: 5 mg Guaifenesin/Dextromethorphan (Mucinex-Dm 600-30 Mg) 1 tab PO BID [facility] Last Admin: 03/26/17 08:52 Dose: 1 tab Azithromycin 500 mg/ Sodium (Chloride) 250 mls @ 250 mls/hr IVPB DAILY [facility] Last Admin: 03/26/17 11:17 Dose: 250 mls/hr Ibuprofen (Motrin Tab) 600 mg PO Q6 PRN PRN Reason: Fever >100.4 F Last Admin: 03/21/17 04:49 Dose: 600 mg Losartan Potassium (Cozaar) 100 mg PO DAILY [facility] Last Admin: 03/26/17 08:51 Dose: 100 mg - Labs Labs: 03/24/17 05:05 - Additional Findings Additional findings: Constitutional Appears: No Acute Distress - ENT Exam ENT Exam: Mucous Membranes Moist - Respiratory Exam Respiratory Exam: Rales (right middle and lower lobes, CTA od left lung field), NORMAL BREATHING PATTERN. absent: Rhonchi, Wheezes - Cardiovascular Exam Cardiovascular Exam: REGULAR RHYTHM, +S1, +S2 - GI/Abdominal Exam GI & Abdominal Exam: Soft, Normal Bowel Sounds. absent: Distended, Guarding, Rigid, Tenderness - Extremities Exam Extremities Exam: Normal Inspection. absent: Calf Tenderness, Pedal Edema - Neurological Exam Neurological Exam: Alert, Awake, Oriented x3 - Skin Skin Exam: Dry, Intact, Normal Color Assessment and Plan - Assessment and Plan (Free Text) Plan: Community acquire pneumonia -afebrile, clinically stable -repeat CXR on 03/23/17 showed increased in right middle lobe infiltrate -chest CT on 03/24/17 showed extensive right middle lobe infiltrate, w/right upper lobe opacity. c/w antibiotics c/w duoneb PRN f/u PPD and quentiferon test f/u sputum Cx f/u Mycoplasma Ag flegionella Ag neg Blood Cx showed no growth after 5 days Pulmunology consult, f/u recommendations PT eval possible transfer to TCU to c/w abx Hyperglycemia f/u accucheck f/u HgbA1C f/u lipid profile HTN controlled c/w current meds f/u BP DVT prophilaxis ambulating <Nicholas Farmer - Last Filed: 03/30/17 10:17> Objective - Vital Signs/Intake and Output Vital Signs (last 24 hours): Temp Pulse Resp BP Pulse Ox 97.9 F 66 18 117/70 96 03/30/17 08:11 03/30/17 08:11 03/30/17 08:11 03/30/17 08:11 03/30/17 08:11 - Medications Medications: Current Medications Acetaminophen (Tylenol 325mg Tab) 650 mg PO Q6 PRN PRN Reason: Fever >100.4 F Last Admin: 03/21/17 23:23 Dose: 650 mg Albuterol/Ipratropium (Duoneb 3 Mg/0.5 Mg (3 Ml) Ud) 3 ml INH RQ6 [facility] Last Admin: 03/30/17 07:22 Dose: 3 ml Amlodipine Besylate (Norvasc) 5 mg PO DAILY [facility] Last Admin: 03/29/17 09:15 Dose: 5 mg Guaifenesin/Dextromethorphan (Mucinex-Dm 600-30 Mg) 1 tab PO BID [facility] Last Admin: 03/29/17 17:34 Dose: 1 tab Azithromycin 500 mg/ Sodium (Chloride) 250 mls @ 250 mls/hr IVPB DAILY [facility] Last Admin: 03/29/17 09:14 Dose: 250 mls/hr Ceftriaxone Sodium 1 gm/ (Sodium Chloride) 100 mls @ 100 mls/hr IVPB DAILY [facility] Last Admin: 03/29/17 09:13 Dose: 100 mls/hr Ibuprofen (Motrin Tab) 600 mg PO Q6 PRN PRN Reason: Fever >100.4 F Last Admin: 03/21/17 04:49 Dose: 600 mg Losartan Potassium (Cozaar) 100 mg PO DAILY [facility] Last Admin: 03/29/17 09:16 Dose: 100 mg - Labs Labs: 03/24/17 05:05 Assessment and Plan (1) CAP (community acquired pneumonia) Status: Acute (2) Hypertension Status: Acute - Assessment and Plan (Free Text) Plan: I was present during evaluation and discussed gamigdalia Jorge re [facility] of care Nicholas Farmer M.D.
--- NOTE | 2017-03-26 15:06 | CP.PCM.PN ---
Subjective - Date & Time of Evaluation Date of Evaluation: 03/26/17 Time of Evaluation: 09:50 - Subjective Subjective: F/U CAP No AD, no SOB , No Chest congestion Objective - Vital Signs/Intake and Output Vital Signs (last 24 hours): Temp Pulse Resp BP Pulse Ox 97.8 F 70 18 127/69 94 L 03/26/17 12:00 03/26/17 12:00 03/26/17 12:00 03/26/17 12:00 03/26/17 12:00 Intake and Output: 03/26/17 03/26/17 06:59 18:59 Output Total 2 Balance -2 - Medications Medications: Current Medications Acetaminophen (Tylenol 325mg Tab) 650 mg PO Q6 PRN PRN Reason: Fever >100.4 F Last Admin: 03/21/17 23:23 Dose: 650 mg Albuterol/Ipratropium (Duoneb 3 Mg/0.5 Mg (3 Ml) Ud) 3 ml INH RQ6 [facility] Last Admin: 03/26/17 13:06 Dose: 3 ml Amlodipine Besylate (Norvasc) 5 mg PO DAILY [facility] Last Admin: 03/26/17 08:52 Dose: 5 mg Guaifenesin/Dextromethorphan (Mucinex-Dm 600-30 Mg) 1 tab PO BID [facility] Last Admin: 03/26/17 08:52 Dose: 1 tab Azithromycin 500 mg/ Sodium (Chloride) 250 mls @ 250 mls/hr IVPB DAILY [facility] Last Admin: 03/26/17 11:17 Dose: 250 mls/hr Ibuprofen (Motrin Tab) 600 mg PO Q6 PRN PRN Reason: Fever >100.4 F Last Admin: 03/21/17 04:49 Dose: 600 mg Losartan Potassium (Cozaar) 100 mg PO DAILY [facility] Last Admin: 03/26/17 08:51 Dose: 100 mg - Labs Labs: 03/24/17 05:05 - Constitutional Appears: No Acute Distress - Head Exam Head Exam: NORMAL INSPECTION - Eye Exam Eye Exam: PERRL - ENT Exam ENT Exam: Normal Exam - Neck Exam Neck Exam: Normal Inspection - Respiratory Exam Respiratory Exam: Decreased Breath Sounds (b/l), Rales (RLL , RML) - Cardiovascular Exam Cardiovascular Exam: REGULAR RHYTHM, Murmur (systolic 3/6 apex-axilla.) - GI/Abdominal Exam GI & Abdominal Exam: Soft, Normal Bowel Sounds - Extremities Exam Extremities Exam: Normal Inspection - Back Exam Back Exam: NORMAL INSPECTION - Neurological Exam Neurological Exam: Alert, Oriented x3 - Psychiatric Exam Psychiatric exam: Normal Mood - Skin Skin Exam: Warm Assessment and Plan (1) CAP (community acquired pneumonia) Status: Acute - Assessment and Plan (Free Text) Plan: Atypical work up neg, Gold Quantiferon , PPD neg, Continue Rocephin, Zithromax for one week, transfer to TCU
[2017-03-27] MEDS: Albuterol-Ipratrop 3 mg / 0.5 (3 ml) UD INH SCH ×4 (01:04→19:22)
[2017-03-27 06:50] LABS: CHOLESTEROL 129 mg/dL (0-199)
[2017-03-27] MEDS: guaiFENesin-DM 600-30 mg ER Tab PO SCH ×2 (09:46→17:29)
[2017-03-27] MEDS: Azithromycin 500 MG in Sodium Chloride 0.9% 250 ML IVPB SCH (09:48)
--- NOTE | 2017-03-27 12:43 | RAD ---
HISTORY: f/u pna COMPARISON: Comparison chest 03/23/2017. Comparison also made with prior CT scan chest 03/20/2017 TECHNIQUE: Chest PA and lateral FINDINGS: LUNGS: Previously noted right middle lobe infiltrate improved. Small patchy infiltrate right upper lobe also appears to have improved PLEURA: No significant pleural effusion identified. No pneumothorax apparent. CARDIOVASCULAR: Normal. OSSEOUS STRUCTURES: No significant abnormalities. VISUALIZED UPPER ABDOMEN: Normal. OTHER FINDINGS: None. IMPRESSION: Interval improvement right middle lobe infiltrates. Infiltrate small patchy infiltrate right upper lobe also appears to have improved
--- NOTE | 2017-03-27 12:48 | CP.PCM.PN ---
<Acacia Jorge - Last Filed: 03/27/17 12:45> Subjective - Date & Time of Evaluation Date of Evaluation: 03/27/17 Time of Evaluation: 09:50 - Subjective Subjective: patient seen and examined with attending Denies CP, SOB, N/V, abdominal pain, diarrheas at this eval afebrile, VS stable had an uneventful night Objective - Vital Signs/Intake and Output Vital Signs (last 24 hours): Temp Pulse Resp BP Pulse Ox 97.4 F L 65 18 134/77 98 03/27/17 11:54 03/27/17 11:54 03/27/17 11:54 03/27/17 11:54 03/27/17 11:54 - Medications Medications: Current Medications Acetaminophen (Tylenol 325mg Tab) 650 mg PO Q6 PRN PRN Reason: Fever >100.4 F Last Admin: 03/21/17 23:23 Dose: 650 mg Albuterol/Ipratropium (Duoneb 3 Mg/0.5 Mg (3 Ml) Ud) 3 ml INH RQ6 [facility] Last Admin: 03/27/17 07:27 Dose: 3 ml Amlodipine Besylate (Norvasc) 5 mg PO DAILY [facility] Last Admin: 03/27/17 09:47 Dose: 5 mg Guaifenesin/Dextromethorphan (Mucinex-Dm 600-30 Mg) 1 tab PO BID [facility] Last Admin: 03/27/17 09:46 Dose: 1 tab Azithromycin 500 mg/ Sodium (Chloride) 250 mls @ 250 mls/hr IVPB DAILY [facility] Last Admin: 03/27/17 09:48 Dose: 250 mls/hr Ceftriaxone Sodium 1 gm/ (Sodium Chloride) 100 mls @ 100 mls/hr IVPB DAILY [facility] Last Admin: 03/27/17 09:48 Dose: 100 mls/hr Ibuprofen (Motrin Tab) 600 mg PO Q6 PRN PRN Reason: Fever >100.4 F Last Admin: 03/21/17 04:49 Dose: 600 mg Losartan Potassium (Cozaar) 100 mg PO DAILY [facility] Last Admin: 03/27/17 09:46 Dose: 100 mg - Labs Labs: 03/24/17 05:05 - Additional Findings Additional findings: Constitutional Appears: No Acute Distress - ENT Exam ENT Exam: Mucous Membranes Moist - Respiratory Exam Respiratory Exam: Rales (right middle and lower lobes, CTA od left lung field), NORMAL BREATHING PATTERN. absent: Rhonchi, Wheezes - Cardiovascular Exam Cardiovascular Exam: REGULAR RHYTHM, +S1, +S2 - GI/Abdominal Exam GI & Abdominal Exam: Soft, Normal Bowel Sounds. absent: Distended, Guarding, Rigid, Tenderness - Extremities Exam Extremities Exam: Normal Inspection. absent: Calf Tenderness, Pedal Edema - Neurological Exam Neurological Exam: Alert, Awake, Oriented x3 - Skin Skin Exam: Dry, Intact, Normal Color Assessment and Plan - Assessment and Plan (Free Text) Plan: Community acquire pneumonia -afebrile, clinically stable, will need antibiotic x [address] project manager recommendations -repeat CXR on 03/27/17 showed interval improvement of previous seen infiltrates -chest CT on 03/24/17 showed extensive right middle lobe infiltrate, w/right upper lobe opacity. c/w antibiotics c/w duoneb PRN quentiferon test neg f/u sputum Cx f/u Mycoplasma Ag flegionella Ag neg Blood Cx showed no growth after 5 days Pulmunology consult, f/u recommendations PT eval possible transfer to TCU to c/w abx Pre-diabetes Hyperglycemia f/u accucheck HgbA1C 6.2 lipid profile wNL, except for low HDL diet and exercise recommended after DC HTN controlled c/w current meds f/u BP DVT prophilaxis ambulating <Nicholas Farmer - Last Filed: 03/30/17 10:27> Objective - Vital Signs/Intake and Output Vital Signs (last 24 hours): Temp Pulse Resp BP Pulse Ox 97.9 F 66 18 117/70 96 03/30/17 08:11 03/30/17 08:11 03/30/17 08:11 03/30/17 08:11 03/30/17 08:11 - Medications Medications: Current Medications Acetaminophen (Tylenol 325mg Tab) 650 mg PO Q6 PRN PRN Reason: Fever >100.4 F Last Admin: 03/21/17 23:23 Dose: 650 mg Albuterol/Ipratropium (Duoneb 3 Mg/0.5 Mg (3 Ml) Ud) 3 ml INH RQ6 [facility] Last Admin: 03/30/17 07:22 Dose: 3 ml Amlodipine Besylate (Norvasc) 5 mg PO DAILY [facility] Last Admin: 03/29/17 09:15 Dose: 5 mg Guaifenesin/Dextromethorphan (Mucinex-Dm 600-30 Mg) 1 tab PO BID [facility] Last Admin: 03/29/17 17:34 Dose: 1 tab Azithromycin 500 mg/ Sodium (Chloride) 250 mls @ 250 mls/hr IVPB DAILY [facility] Last Admin: 03/29/17 09:14 Dose: 250 mls/hr Ceftriaxone Sodium 1 gm/ (Sodium Chloride) 100 mls @ 100 mls/hr IVPB DAILY [facility] Last Admin: 03/29/17 09:13 Dose: 100 mls/hr Ibuprofen (Motrin Tab) 600 mg PO Q6 PRN PRN Reason: Fever >100.4 F Last Admin: 03/21/17 04:49 Dose: 600 mg Losartan Potassium (Cozaar) 100 mg PO DAILY [facility] Last Admin: 03/29/17 09:16 Dose: 100 mg - Labs Labs: 03/24/17 05:05 - Head Exam Head Exam: NORMAL INSPECTION - Eye Exam Eye Exam: Normal appearance - ENT Exam ENT Exam: Mucous Membranes Moist - Respiratory Exam Respiratory Exam: Clear to Ausculation Bilateral - Cardiovascular Exam Cardiovascular Exam: REGULAR RHYTHM - GI/Abdominal Exam GI & Abdominal Exam: Normal Bowel Sounds - Neurological Exam Neurological Exam: Awake, Oriented x3 Assessment and Plan (1) CAP (community acquired pneumonia) Status: Acute (2) Hypertension Status: Acute - Assessment and Plan (Free Text) Plan: I was present during evaluation and discussed with Dr Jorge re plan of care and tx. Nicholas Farmer M.D.
--- NOTE | 2017-03-27 14:55 | CP.PCM.PN ---
Subjective - Date & Time of Evaluation Date of Evaluation: 03/27/17 Time of Evaluation: 11:40 - Subjective Subjective: F/U PNA. Pt with no SOB, no A/D. Objective - Vital Signs/Intake and Output Vital Signs (last 24 hours): Temp Pulse Resp BP Pulse Ox 97.4 F L 65 18 134/77 98 03/27/17 11:54 03/27/17 11:54 03/27/17 11:54 03/27/17 11:54 03/27/17 11:54 - Medications Medications: Current Medications Acetaminophen (Tylenol 325mg Tab) 650 mg PO Q6 PRN PRN Reason: Fever >100.4 F Last Admin: 03/21/17 23:23 Dose: 650 mg Albuterol/Ipratropium (Duoneb 3 Mg/0.5 Mg (3 Ml) Ud) 3 ml INH RQ6 [facility] Last Admin: 03/27/17 14:04 Dose: Not Given Amlodipine Besylate (Norvasc) 5 mg PO DAILY [facility]CLUD[facility] Last Admin: 03/27/17 09:47 Dose: 5 mg Guaifenesin/Dextromethorphan (Mucinex-Dm 600-30 Mg) 1 tab PO BID COUNT [facility]CLUD[facility] Last Admin: 03/27/17 09:46 Dose: 1 tab Azithromycin 500 mg/ Sodium (Chloride) 250 mls @ 250 mls/hr IVPB DAILY [facility] Last Admin: 03/27/17 09:48 Dose: 250 mls/hr Ceftriaxone Sodium 1 gm/ (Sodium Chloride) 100 mls @ 100 mls/hr IVPB DAILY [facility] Last Admin: 03/27/17 09:48 Dose: 100 mls/hr Ibuprofen (Motrin Tab) 600 mg PO Q6 PRN PRN Reason: Fever >100.4 F Last Admin: 03/21/17 04:49 Dose: 600 mg Losartan Potassium (Cozaar) 100 mg PO DAILY [facility] Last Admin: 03/27/17 09:46 Dose: 100 mg - Labs Labs: 03/24/17 05:05 - Constitutional Appears: No Acute Distress - Head Exam Head Exam: NORMAL INSPECTION - Eye Exam Eye Exam: PERRL - ENT Exam ENT Exam: Normal Exam - Neck Exam Neck Exam: Normal Inspection - Respiratory Exam Respiratory Exam: Decreased Breath Sounds (b/l), Rales (RLL, RML) - Cardiovascular Exam Cardiovascular Exam: REGULAR RHYTHM, Murmur (systolic 3/6 apex-axilla.) - GI/Abdominal Exam GI & Abdominal Exam: Soft, Normal Bowel Sounds - Extremities Exam Extremities Exam: Normal Inspection - Back Exam Back Exam: NORMAL INSPECTION - Neurological Exam Neurological Exam: Alert, Oriented x3 - Psychiatric Exam Psychiatric exam: Normal Mood - Skin Skin Exam: Warm Assessment and Plan (1) CAP (community acquired pneumonia) Status: Acute - Assessment and Plan (Free Text) Plan: CXR shows mild improvement. Continue IV abx and rest of Tx.
[2017-03-28] MEDS: Albuterol-Ipratrop 3 mg / 0.5 (3 ml) UD INH SCH ×4 (01:00→19:13)
[2017-03-28] MEDS: guaiFENesin-DM 600-30 mg ER Tab PO SCH ×2 (09:27→17:40)
[2017-03-28] MEDS: Azithromycin 500 MG in Sodium Chloride 0.9% 250 ML IVPB SCH (10:18)
--- NOTE | 2017-03-28 11:11 | CP.PCM.PN ---
Subjective - Date & Time of Evaluation Date of Evaluation: 03/28/17 Time of Evaluation: 11:10 - Subjective Subjective: Patient remains afebrile Has minimal cough. Noted improvement of pneumonia from CXR yesterday. Objective - Vital Signs/Intake and Output Vital Signs (last 24 hours): Temp Pulse Resp BP Pulse Ox 98.1 F 66 18 122/72 94 L 03/28/17 08:12 03/28/17 09:27 03/28/17 08:12 03/28/17 09:27 03/28/17 08:12 - Medications Medications: Current Medications Acetaminophen (Tylenol 325mg Tab) 650 mg PO Q6 PRN PRN Reason: Fever >100.4 F Last Admin: 03/21/17 23:23 Dose: 650 mg Albuterol/Ipratropium (Duoneb 3 Mg/0.5 Mg (3 Ml) Ud) 3 ml INH RQ6 [facility] Last Admin: 03/28/17 07:19 Dose: 3 ml Amlodipine Besylate (Norvasc) 5 mg PO DAILY [facility] Last Admin: 03/28/17 09:26 Dose: 5 mg Guaifenesin/Dextromethorphan (Mucinex-Dm 600-30 Mg) 1 tab PO BID [facility] Last Admin: 03/28/17 09:27 Dose: 1 tab Azithromycin 500 mg/ Sodium (Chloride) 250 mls @ 250 mls/hr IVPB DAILY [facility] Last Admin: 03/28/17 10:18 Dose: 250 mls/hr Ceftriaxone Sodium 1 gm/ (Sodium Chloride) 100 mls @ 100 mls/hr IVPB DAILY [facility] Last Admin: 03/28/17 09:17 Dose: 100 mls/hr Ibuprofen (Motrin Tab) 600 mg PO Q6 PRN PRN Reason: Fever >100.4 F Last Admin: 03/21/17 04:49 Dose: 600 mg Losartan Potassium (Cozaar) 100 mg PO DAILY [facility] Last Admin: 03/28/17 09:27 Dose: 100 mg - Labs Labs: 03/24/17 05:05 - Head Exam Head Exam: NORMAL INSPECTION - Eye Exam Eye Exam: Normal appearance - ENT Exam ENT Exam: Mucous Membranes Moist - Respiratory Exam Respiratory Exam: Decreased Breath Sounds, NORMAL BREATHING PATTERN - Cardiovascular Exam Cardiovascular Exam: REGULAR RHYTHM - GI/Abdominal Exam GI & Abdominal Exam: Normal Bowel Sounds Assessment and Plan (1) CAP (community acquired pneumonia) Status: Acute (2) Hypertension Status: Acute - Assessment and Plan (Free Text) Plan: Cont meds Cont tx Cont PT DC planning
--- NOTE | 2017-03-28 16:44 | CP.PCM.PN ---
Subjective - Date & Time of Evaluation Date of Evaluation: 03/28/17 Time of Evaluation: 13:30 - Subjective Subjective: F/U PNA. Pt awake, alert, no A/D, no SOB, occasional dry cough. Objective - Vital Signs/Intake and Output Vital Signs (last 24 hours): Temp Pulse Resp BP Pulse Ox 97.7 F 64 18 117/72 98 03/28/17 12:47 03/28/17 12:47 03/28/17 12:47 03/28/17 12:47 03/28/17 12:47 - Medications Medications: Current Medications Acetaminophen (Tylenol 325mg Tab) 650 mg PO Q6 PRN PRN Reason: Fever >100.4 F Last Admin: 03/21/17 23:23 Dose: 650 mg Albuterol/Ipratropium (Duoneb 3 Mg/0.5 Mg (3 Ml) Ud) 3 ml INH RQ6 [facility] Last Admin: 03/28/17 13:39 Dose: 3 ml Amlodipine Besylate (Norvasc) 5 mg PO DAILY [facility] Last Admin: 03/28/17 09:26 Dose: 5 mg Guaifenesin/Dextromethorphan (Mucinex-Dm 600-30 Mg) 1 tab PO BID [facility] Last Admin: 03/28/17 09:27 Dose: 1 tab Azithromycin 500 mg/ Sodium (Chloride) 250 mls @ 250 mls/hr IVPB DAILY [facility] Last Admin: 03/28/17 10:18 Dose: 250 mls/hr Ceftriaxone Sodium 1 gm/ (Sodium Chloride) 100 mls @ 100 mls/hr IVPB DAILY [facility] Last Admin: 03/28/17 09:17 Dose: 100 mls/hr Ibuprofen (Motrin Tab) 600 mg PO Q6 PRN PRN Reason: Fever >100.4 F Last Admin: 03/21/17 04:49 Dose: 600 mg Losartan Potassium (Cozaar) 100 mg PO DAILY [facility] Last Admin: 03/28/17 09:27 Dose: 100 mg - Labs Labs: 03/24/17 05:05 - Constitutional Appears: No Acute Distress - Head Exam Head Exam: NORMAL INSPECTION - Eye Exam Eye Exam: PERRL - ENT Exam ENT Exam: Normal Exam - Neck Exam Neck Exam: Normal Inspection - Respiratory Exam Respiratory Exam: Decreased Breath Sounds (mild b/l) - Cardiovascular Exam Cardiovascular Exam: REGULAR RHYTHM, Murmur (systolic 3/6 apex-axilla) - GI/Abdominal Exam GI & Abdominal Exam: Soft, Normal Bowel Sounds - Extremities Exam Extremities Exam: Normal Inspection - Back Exam Back Exam: NORMAL INSPECTION - Neurological Exam Neurological Exam: Alert, Oriented x3 - Psychiatric Exam Psychiatric exam: Normal Mood - Skin Skin Exam: Warm Assessment and Plan (1) CAP (community acquired pneumonia) Status: Acute - Assessment and Plan (Free Text) Plan: From CXR: PNA improved. Continue with Zithromax, Rocephin and rest of Tx.
[2017-03-29] MEDS: Albuterol-Ipratrop 3 mg / 0.5 (3 ml) UD INH SCH ×4 (01:01→19:30)
[2017-03-29] MEDS: Azithromycin 500 MG in Sodium Chloride 0.9% 250 ML IVPB SCH (09:14)
[2017-03-29] MEDS: guaiFENesin-DM 600-30 mg ER Tab PO SCH ×2 (09:16→17:34)
--- NOTE | 2017-03-29 19:28 | CP.PCM.PN ---
Subjective - Date & Time of Evaluation Date of Evaluation: 03/29/17 Time of Evaluation: 11:30 - Subjective Subjective: F/U PNA Pt doing well, no SOB, no BAKER, occasional dry cough, at one time bringing up small amount of yellowish phlegms. Objective - Vital Signs/Intake and Output Vital Signs (last 24 hours): Temp Pulse Resp BP Pulse Ox 97.6 F 69 16 124/74 97 03/29/17 17:00 03/29/17 17:00 03/29/17 17:00 03/29/17 17:00 03/29/17 17:00 - Medications Medications: Current Medications Acetaminophen (Tylenol 325mg Tab) 650 mg PO Q6 PRN PRN Reason: Fever >100.4 F Last Admin: 03/21/17 23:23 Dose: 650 mg Albuterol/Ipratropium (Duoneb 3 Mg/0.5 Mg (3 Ml) Ud) 3 ml INH RQ6 [facility] Last Admin: 03/29/17 13:22 Dose: 3 ml Amlodipine Besylate (Norvasc) 5 mg PO DAILY [facility] Last Admin: 03/29/17 09:15 Dose: 5 mg Guaifenesin/Dextromethorphan (Mucinex-Dm 600-30 Mg) 1 tab PO BID [facility] Last Admin: 03/29/17 17:34 Dose: 1 tab Azithromycin 500 mg/ Sodium (Chloride) 250 mls @ 250 mls/hr IVPB DAILY [facility] Last Admin: 03/29/17 09:14 Dose: 250 mls/hr Ceftriaxone Sodium 1 gm/ (Sodium Chloride) 100 mls @ 100 mls/hr IVPB DAILY [facility] Last Admin: 03/29/17 09:13 Dose: 100 mls/hr Ibuprofen (Motrin Tab) 600 mg PO Q6 PRN PRN Reason: Fever >100.4 F Last Admin: 03/21/17 04:49 Dose: 600 mg Losartan Potassium (Cozaar) 100 mg PO DAILY [facility] Last Admin: 03/29/17 09:16 Dose: 100 mg - Labs Labs: 03/24/17 05:05 - Constitutional Appears: No Acute Distress - Head Exam Head Exam: NORMAL INSPECTION - Eye Exam Eye Exam: PERRL - ENT Exam ENT Exam: Normal Exam - Neck Exam Neck Exam: Normal Inspection - Respiratory Exam Respiratory Exam: NORMAL BREATHING PATTERN - Cardiovascular Exam Cardiovascular Exam: REGULAR RHYTHM, Murmur (systolic 3/6 apex-axilla) - GI/Abdominal Exam GI & Abdominal Exam: Soft, Normal Bowel Sounds - Extremities Exam Extremities Exam: Normal Inspection - Back Exam Back Exam: NORMAL INSPECTION - Neurological Exam Neurological Exam: Alert, Oriented x3 - Psychiatric Exam Psychiatric exam: Normal Mood - Skin Skin Exam: Warm Assessment and Plan (1) CAP (community acquired pneumonia) Status: Acute - Assessment and Plan (Free Text) Plan: Continue Zithromax, Rocephin, Duoneb and rest of Tx.
[2017-03-30] MEDS: Albuterol-Ipratrop 3 mg / 0.5 (3 ml) UD INH SCH ×3 (01:42→13:21)
[2017-03-30 08:11] VITALS: RESP 18
--- NOTE | 2017-03-30 10:05 | CP.PCM.PN ---
Subjective - Date & Time of Evaluation Date of Evaluation: 03/29/17 Time of Evaluation: 10:00 - Subjective Subjective: Patient is doing a lot better Has no chest pain or SOB Afebrile Objective - Vital Signs/Intake and Output Vital Signs (last 24 hours): Temp Pulse Resp BP Pulse Ox 97.9 F 66 18 117/70 96 03/30/17 08:11 03/30/17 08:11 03/30/17 08:11 03/30/17 08:11 03/30/17 08:11 - Medications Medications: Current Medications Acetaminophen (Tylenol 325mg Tab) 650 mg PO Q6 PRN PRN Reason: Fever >100.4 F Last Admin: 03/21/17 23:23 Dose: 650 mg Albuterol/Ipratropium (Duoneb 3 Mg/0.5 Mg (3 Ml) Ud) 3 ml INH RQ6 [facility] Last Admin: 03/30/17 07:22 Dose: 3 ml Amlodipine Besylate (Norvasc) 5 mg PO DAILY [facility] Last Admin: 03/29/17 09:15 Dose: 5 mg Guaifenesin/Dextromethorphan (Mucinex-Dm 600-30 Mg) 1 tab PO BID [facility] Last Admin: 03/29/17 17:34 Dose: 1 tab Azithromycin 500 mg/ Sodium (Chloride) 250 mls @ 250 mls/hr IVPB DAILY [facility] Last Admin: 03/29/17 09:14 Dose: 250 mls/hr Ceftriaxone Sodium 1 gm/ (Sodium Chloride) 100 mls @ 100 mls/hr IVPB DAILY [facility] Last Admin: 03/29/17 09:13 Dose: 100 mls/hr Ibuprofen (Motrin Tab) 600 mg PO Q6 PRN PRN Reason: Fever >100.4 F Last Admin: 03/21/17 04:49 Dose: 600 mg Losartan Potassium (Cozaar) 100 mg PO DAILY [facility] Last Admin: 03/29/17 09:16 Dose: 100 mg - Labs Labs: 03/24/17 05:05 - Head Exam Head Exam: NORMAL INSPECTION - Eye Exam Eye Exam: Normal appearance - ENT Exam ENT Exam: Mucous Membranes Moist - Respiratory Exam Respiratory Exam: Clear to Ausculation Bilateral - Cardiovascular Exam Cardiovascular Exam: REGULAR RHYTHM - GI/Abdominal Exam GI & Abdominal Exam: Normal Bowel Sounds - Neurological Exam Neurological Exam: Awake, Oriented x3 Assessment and Plan (1) CAP (community acquired pneumonia) Status: Acute (2) Hypertension Status: Acute - Assessment and Plan (Free Text) Plan: Contmeds Cont tx Cont PT repeat CXR in am.
--- NOTE | 2017-03-30 10:09 | CP.PCM.DIS ---
Provider - Provider Date of Admission: 03/20/17 20:58 Attending physician: Nicholas Farmer MD Time Spent in preparation of Discharge (in minutes): 30 Diagnosis - Discharge Diagnosis (1) CAP (community acquired pneumonia) Status: Acute Priority: High (2) Hypertension Status: Acute Hospital Course - Lab Results Lab Results: Micro Results 03/21/17 12:00 Blood-Venous Blood Culture - Final NO GROWTH AFTER 5 DAYS 03/21/17 12:00 Blood-Venous Gram Stain - Final TEST NOT PERFORMED 03/22/17 23:32 Urine,Clean Catch Urine Culture - Final No Growth (<1,000 CFU/ML) Most Recent Lab Values WBC 8.3 K/uL (4.8-10.8) 03/24/17 05:05 RBC 3.86 Mil/uL (4.40-5.90) L 03/24/17 05:05 Hgb 12.9 g/dL (12.0-18.0) 03/24/17 05:05 Hct 38.0 % (35.0-51.0) 03/24/17 05:05 MCV 98.6 fl (80.0-94.0) H 03/24/17 05:05 MCH 33.5 pg (27.0-31.0) H 03/24/17 05:05 MCHC 33.9 g/dL (33.0-37.0) 03/24/17 05:05 RDW 14.5 % (11.5-14.5) 03/24/17 05:05 Plt Count 255 K/uL (130-400) 03/24/17 05:05 MPV 8.3 fl (7.2-11.7) 03/20/17 18:40 Neut % (Auto) 87.4 % (50.0-75.0) H 03/20/17 18:40 Lymph % (Auto) 6.6 % (20.0-40.0) L 03/20/17 18:40 [place] % (Auto) 5.6 % (0.0-10.0) 03/20/17 18:40 Eos % (Auto) 0.0 % (0.0-4.0) 03/20/17 18:40 Baso % (Auto) 0.4 % (0.0-2.0) 03/20/17 18:40 Neut # 10.6 K/uL (1.8-7.0) H 03/20/17 18:40 Lymph # 0.8 K/uL (1.0-4.3) L 03/20/17 18:40 [place] # 0.7 K/uL (0.0-0.8) 03/20/17 18:40 Eos # 0.0 K/uL (0.0-0.7) 03/20/17 18:40 Baso # 0.0 K/uL (0.0-0.2) 03/20/17 18:40 Neutrophils % (Manual) 88 % (42-75) H 03/20/17 18:40 Band Neutrophils % 1 % (0-2) 03/20/17 18:40 Lymphocytes % (Manual) 4 % (20-50) L 03/20/17 18:40 Monocytes % (Manual) 7 % (0-10) 03/20/17 18:40 Platelet Estimate Normal (NORMAL) 03/20/17 18:40 pO2 13 mm/Hg (30-55) L 03/20/17 18:37 VBG pH 7.42 (7.32-7.43) 03/20/17 18:37 VBG pCO2 50 mmHg (40-60) 03/20/17 18:37 VBG HCO3 27.9 mmol/L 03/20/17 18:37 VBG Total CO2 33.9 mmol/L (22-28) H 03/20/17 18:37 VBG O2 Sat (Calc) 19.3 % (40-65) L 03/20/17 18:37 VBG Base Excess 6.6 mmol/L (0.0-2.0) H 03/20/17 18:37 VBG Potassium 3.3 mmol/L (3.6-5.2) L 03/20/17 18:37 Sodium 134.0 mmol/L (132-148) 03/20/17 18:37 Chloride 95.0 mmol/L (98-107) L 03/20/17 18:37 Glucose 122 mg/dL (75-110) H 03/20/17 18:37 Lactate 1.4 mmol/L (0.7-2.1) 03/20/17 18:37 FiO2 21.0 % 03/20/17 18:37 Sodium 134 mmol/l (132-148) 03/20/17 18:40 Potassium 3.5 MMOL/L (3.6-5.0) L 03/20/17 18:40 Chloride 94 mmol/L (98-107) L 03/20/17 18:40 Carbon Dioxide 28 mmol/L (22-30) 03/20/17 18:40 Anion Gap 16 (10-20) 03/20/17 18:40 BUN 24 mg/dl (9-20) H 03/20/17 18:40 Creatinine 1.3 mg/dL (0.8-1.5) 03/20/17 18:40 Est GFR ( Amer) > 60 03/20/17 18:40 Est GFR (Non-Af Amer) 53 03/20/17 18:40 POC Glucose (mg/dL) 78 mg/dL (65-110) 03/30/17 05:18 Random Glucose 120 mg/dL (75-110) H 03/20/17 18:40 Hemoglobin A1c 6.2 % (4.2-6.5) 03/27/17 06:05 Calcium 9.0 mg/dL (8.4-10.2) 03/20/17 18:40 Phosphorus 3.5 mg/dl (2.5-4.5) 03/20/17 18:40 Magnesium 2.4 MG/DL (1.6-2.3) H 03/20/17 18:40 Total Bilirubin 0.8 mg/dl (0.2-1.3) 03/20/17 18:40 AST 57 U/L (17-59) 03/20/17 18:40 ALT 57 U/L (21-72) 03/20/17 18:40 Alkaline Phosphatase 67 U/L (38-126) 03/20/17 18:40 Total Protein 7.0 G/DL (6.3-8.2) 03/20/17 18:40 Albumin 4.2 g/dL (3.5-5.0) 03/20/17 18:40 Globulin 2.8 gm/dL (2.2-3.9) 03/20/17 18:40 Albumin/Globulin Ratio 1.5 (1.0-2.1) 03/20/17 18:40 Triglycerides 135 mg/DL (0-149) 03/27/17 06:05 Cholesterol 129 mg/dL (0-199) 03/27/17 06:05 LDL Cholesterol Direct 83 mg/dL (0-129) 03/27/17 06:05 HDL Cholesterol 13 MG/DL (30-70) L 03/27/17 06:05 Lipase 72 U/L (23-300) 03/20/17 18:40 Procalcitonin 0.10 NG/ML (0.19-0.49) L 03/25/17 12:04 Venous Blood Potassium 3.3 mmol/L (3.6-5.2) L 03/20/17 18:37 Urine Color Yellow (YELLOW) 03/20/17 19:43 Urine Clarity Slighty-cloudy (Clear) 03/20/17 19:43 Urine pH 5.0 (5.0-8.0) 03/20/17 19:43 Ur Specific [place] 1.035 (1.003-1.030) H 03/20/17 19:43 Urine Protein 100 mg/dL (NEGATIVE) 03/20/17 19:43 Urine Glucose (UA) >=500 mg/dL (Normal) 03/20/17 19:43 Urine Ketones Trace mg/dL (NEGATIVE) 03/20/17 19:43 Urine Blood Moderate (NEGATIVE) 03/20/17 19:43 Urine Nitrate Negative (NEGATIVE) 03/20/17 19:43 Urine Bilirubin Negative (NEGATIVE) 03/20/17 19:43 Urine Urobilinogen 0.2-1.0 mg/dL (0.2-1.0) 03/20/17 19:43 Ur Leukocyte Esterase Neg Ayah/uL (Negative) 03/20/17 19:43 Urine RBC (Auto) 9 /hpf (0-3) H 03/20/17 19:43 Urine Microscopic WBC 2 /hpf (0-5) 03/20/17 19:43 Ur Squamous Epith Cells < 1 /hpf (0-5) 03/20/17 19:43 Urine Bacteria Rare (<OCC) 03/20/17 19:43 HIV-1 Ab Rapid Screen Non reactive (NON REAC) 03/27/17 11:42 Ur L.pneumophila Ag Negative (NEGATIVE) 03/25/17 10:12 Mycoplasma pneumon IgG 1.65 (<=0.90) H 03/24/17 18:30 Mycoplasma pneumon IgM 76 U/mL (<770) 03/24/17 18:30 TB Test (QFT) Nil 0.07 IU/mL 03/25/17 10:26 TB Test Mitogen - Nil 9.67 IU/mL 03/25/17 10:26 TB Test TB - Nil 0.04 IU/mL 03/25/17 10:26 TB Test (QFT) Negative (Negative) 03/25/17 10:26 - Hospital Course Hospital Course: This is a 76 y/o male admitted for progressive generalized debility and body weakness and low grade fever. CXR showed right middle lobe pneumonia. He was started on IV antibiotics and Dr Tobin was called for consult. CT scan showed also an infiltrate in the right upper lobe and noted worsening of infiltrate. Patient had very minimal cough. He was placed on other antibiotics and responded well. He was started on phys therapy and was discharged in stable condition on po antibiotics. He was advised to follow up in 1 to 2 weeks. Discharge Exam - Head Exam Head Exam: NORMAL INSPECTION - Eye Exam Eye Exam: Normal appearance - Respiratory Exam Respiratory Exam: Decreased Breath Sounds, NORMAL BREATHING PATTERN - GI/Abdominal Exam GI & Abdominal Exam: Normal Bowel Sounds - Neurological Exam Neurological exam: CN II-XII Intact, Oriented x3 - Psychiatric Exam Psychiatric exam: Normal Mood Discharge Plan - Discharge Medications Prescriptions: cefTRIAXone 1 gm [Rocephin 1 gram IVPB] 1 gm IVPB DAILY #7 bag Azithromycin 500MG/NS 250ml [Zithromax 500mg in NS] 500 mg IV DAILY #7 bag - Follow Up Plan Condition: STABLE Disposition: REHAB FACILITY/REHAB UNIT Instructions: Community Acquired Pneumonia (DC) Additional Instructions: patient cleared for discharge to TCU today by and cont. Rocephin and Zithromax IV f/u with / Crista in TCU cont meds. Referrals: Nicholas Farmer MD [Staff Provider] -
[2017-03-30] MEDS: Azithromycin 500 MG in Sodium Chloride 0.9% 250 ML IVPB SCH (10:36)
[2017-03-30] MEDS: guaiFENesin-DM 600-30 mg ER Tab PO SCH (10:36)
[2017-03-30 11:43] LABS: HEMATOCRIT 35.7 % (35.0-51.0); MEAN CELL VOLUME 98.2 fl (80.0-94.0); MEAN CORPUSCULAR HEMOGLOBIN 33.8 pg (27.0-31.0); MEAN CORPUSCULAR HGB CONC 34.4 g/dL (33.0-37.0); RED CELL DISTRIBUTION WIDTH 14.7 % (11.5-14.5); WHITE BLOOD COUNT 5.9 K/uL (4.8-10.8)
[2017-03-30 11:59] LABS: BLOOD UREA NITROGEN 15 mg/dl (9-20); CALCIUM 9.6 mg/dL (8.4-10.2); CARBON DIOXIDE 27 mmol/L (22-30); CHLORIDE 104 mmol/L (98-107); GFR AFRICAN-AMERICAN > 60; GLUCOSE,RANDOM 124 mg/dL (75-110); POTASSIUM 4.6 MMOL/L (3.6-5.0); SODIUM 141 mmol/l (132-148)
[2017-03-30 12:36] VITALS: BP 115/76; PULSE 64; TEMP 98; O2SAT 98
--- NOTE | 2017-03-30 13:48 | RAD ---
HISTORY: Pneumonia COMPARISON: Chest radiographs 03/27/2017 TECHNIQUE: Chest PA and lateral FINDINGS: LUNGS: There is a mild improvement in right middle lobe pneumonia. A minimal right pleural effusion has developed in the interval. None is seen the left and there is no pneumothorax. PLEURA: As above. CARDIOVASCULAR: Normal. OSSEOUS STRUCTURES: No significant abnormalities. VISUALIZED UPPER ABDOMEN: Normal. OTHER FINDINGS: None. IMPRESSION: Diminishing right middle lobe infiltrate with tiny interval right pleural effusion now identified. No pneumothorax.
--- NOTE | 2017-03-30 15:07 | CP.PCM.PN ---
Subjective - Date & Time of Evaluation Date of Evaluation: 03/30/17 Time of Evaluation: 10:30 - Subjective Subjective: F/U PNA Pt with no SOB, no BAKER, Pt ambulating well, occasional dry cough. Objective - Vital Signs/Intake and Output Vital Signs (last 24 hours): Temp Pulse Resp BP Pulse Ox 98 F 64 18 115/76 98 03/30/17 12:36 03/30/17 12:36 03/30/17 12:36 03/30/17 12:36 03/30/17 12:36 - Medications Medications: Current Medications Acetaminophen (Tylenol 325mg Tab) 650 mg PO Q6 PRN PRN Reason: Fever >100.4 F Last Admin: 03/21/17 23:23 Dose: 650 mg Albuterol/Ipratropium (Duoneb 3 Mg/0.5 Mg (3 Ml) Ud) 3 ml INH RQ6 [facility] Last Admin: 03/30/17 13:21 Dose: 3 ml Amlodipine Besylate (Norvasc) 5 mg PO DAILY [facility] Last Admin: 03/30/17 10:37 Dose: 5 mg Guaifenesin/Dextromethorphan (Mucinex-Dm 600-30 Mg) 1 tab PO BID [facility] Last Admin: 03/30/17 10:36 Dose: 1 tab Azithromycin 500 mg/ Sodium (Chloride) 250 mls @ 250 mls/hr IVPB DAILY [facility] Last Admin: 03/30/17 10:36 Dose: 250 mls/hr Ceftriaxone Sodium 1 gm/ (Sodium Chloride) 100 mls @ 100 mls/hr IVPB DAILY [facility] Last Admin: 03/30/17 10:35 Dose: 100 mls/hr Ibuprofen (Motrin Tab) 600 mg PO Q6 PRN PRN Reason: Fever >100.4 F Last Admin: 03/21/17 04:49 Dose: 600 mg Losartan Potassium (Cozaar) 100 mg PO DAILY [facility] Last Admin: 03/30/17 10:36 Dose: 100 mg - Labs Labs: 03/30/17 11:20 03/30/17 11:20 - Constitutional Appears: No Acute Distress - Head Exam Head Exam: NORMAL INSPECTION - Eye Exam Eye Exam: PERRL - ENT Exam ENT Exam: Normal Exam - Neck Exam Neck Exam: Normal Inspection - Respiratory Exam Respiratory Exam: NORMAL BREATHING PATTERN - Cardiovascular Exam Cardiovascular Exam: REGULAR RHYTHM, Murmur (systolic 3/6 apex-axilla) - GI/Abdominal Exam GI & Abdominal Exam: Soft, Normal Bowel Sounds - Extremities Exam Extremities Exam: Normal Inspection - Back Exam Back Exam: NORMAL INSPECTION - Neurological Exam Neurological Exam: Alert, Oriented x3 - Psychiatric Exam Psychiatric exam: Normal Mood - Skin Skin Exam: Warm Assessment and Plan (1) CAP (community acquired pneumonia) Status: Acute - Assessment and Plan (Free Text) Plan: Pulmonary clear for discharge.
== END 2017-03-30 14:50 | DRG 194 ==
LOC: H.ER 17:36 → H.ERHOLD 20:58 → OBSVTOIN 20:58 → H.TEL 22:37
PROVIDERS: ADMIT Family Medicine; ATTEND Family Medicine
PROC: 3E0F7GC Introduction of Other Therapeutic Substance into Respiratory Tract, Via Natural or Artificial Opening (ICD-10-PCS; principal; 2017-03-20)
PROC: 3E0234Z Introduction of Serum, Toxoid and Vaccine into Muscle, Percutaneous Approach (ICD-10-PCS; 2017-03-23)
DX: J18.9 Pneumonia, unspecified organism (principal); J90 Pleural effusion, not elsewhere classified; E11.9 Type 2 diabetes mellitus without complications; J98.11 Atelectasis; I10 Essential (primary) hypertension; E78.00 Pure hypercholesterolemia, unspecified; E78.5 Hyperlipidemia, unspecified; G47.30 Sleep apnea, unspecified; M17.0 Bilateral primary osteoarthritis of knee; N40.0 Benign prostatic hyperplasia without lower urinary tract symptoms; Z79.899 Other long term (current) drug therapy; Z80.42 Family history of malignant neoplasm of prostate; Z86.73 Personal history of transient ischemic attack (TIA), and cerebral infarction without residual deficits; Z87.891 Personal history of nicotine dependence; Z86.018 Personal history of other benign neoplasm; H26.9 Unspecified cataract; Z23 Encounter for immunization

== ENCOUNTER 2018-03-13 19:43 | Emergency (ER) | payer MEDICARE ==
[2018-03-13 19:43] VITALS: BMI 28.4
[2018-03-13] MEDS ORDERED: Sodium Chloride 0.9% 500 ML IV STA (20:32)
--- NOTE | 2018-03-13 20:56 | ED PDOC ---
HPI: Chest Pain Time Seen by Provider: 03/13/18 20:21 Chief Complaint (Nursing): Chest Pain Chief Complaint (Provider): Right lower chest pain History Per: Patient History/Exam Limitations: no limitations Onset/Duration Of Symptoms: Hrs (> 12 hours) Current Symptoms Are (Timing): Still Present Quality: "Pain" Associated Symptoms: denies: Nausea, Dyspnea, Diaphoresis, Syncope Additional History Per: Patient Additional Complaint(s): 77yo male, history of diabetes, comes to ER for evaluation of anterior right lower chest pain since 12noon yesterday. He reports some associated mild shortness of breath as well but is the same as previous that he has had for a long time. Not worse then usual. Patient took pain medications with no relief. He otherwise denies any abdominal pain, vomiting, diarrhea, or constipation; patient states he was constipated but took medications with a normal bowel movement after. He also denies any falls, injuries, back pain, dysuria, leg swelling, or leg pain. He has no other complaints. PMD: Dr. Farmer Past Medical History Reviewed: Historical Data, Nursing Documentation, Vital Signs Vital Signs: Last Vital Signs Temp 98.6 F 03/13/18 20:06 Pulse 67 03/13/18 20:06 Resp 22 03/13/18 20:06 BP 127/70 03/13/18 20:06 Pulse Ox 96 03/13/18 21:05 - Medical History PMH: Benign Prostatic Hyperplasia, Diabetes, Fractures (1951 orif right arm), HTN, Hypercholesterolemia, Sleep Apnea (c pap does not use), TIA (11 years ago) Denies: Chronic Kidney Disease - Family History Family History: States: Unknown Family Hx, [place] (brother, age 50) Denies: Stroke - Immunization History Hx Tetanus Toxoid Vaccination: No Hx Influenza Vaccination: No Hx Pneumococcal Vaccination: No - Home Medications Home Medications: Ambulatory Orders Medication Instructions Recorded Acetaminophen [Tylenol 325mg tab] 650 mg PO Q6 PRN tab 03/26/17 Albuterol/Ipratropium [Duoneb 3 3 ml INH RQ6 03/26/17 mg/0.5 mg (3 ml) UD] Azithromycin 500MG/NS 250ml 500 mg IV DAILY #7 bag 03/26/17 [Zithromax 500mg in NS] Ibuprofen [Motrin Tab] 600 mg PO Q6 PRN tab 03/26/17 Losartan [Cozaar] 100 mg PO DAILY tab 03/26/17 Sodium Chloride for Inhalation 4 ml IH ONCE PRN 03/26/17 [Sodium Chloride 3% for Inhalation] amLODIPine [Norvasc] 5 mg PO DAILY tab 03/26/17 cefTRIAXone 1 gm [Rocephin 1 gram 1 gm IVPB DAILY #7 bag 03/26/17 IVPB] guaiFENesin/Dextromethorphan 1 tab PO BID tab 03/26/17 [Mucinex-DM 600-30 mg] Ibuprofen [Motrin] 600 mg PO TID 7 Days tab 03/13/18 - Allergies Allergies/Adverse Reactions: Allergies Allergy/AdvReac Type Severity Reaction Status Date / Time chlorpheniramine Allergy RASH Verified 03/20/17 17:51 [From Contac Cold-Flu Day and Night] phenylephrine HCl Allergy RASH Verified 03/20/17 17:51 [From Contac Cold-Flu Day and Night] Review of Systems ROS Statement: Except As Marked, All Systems Reviewed And Found Negative Constitutional: Negative for: Fever, Chills Cardiovascular: Positive for: Chest Pain (right lower anterior chest pain) Respiratory: Positive for: Shortness of Breath (mild) Gastrointestinal: Negative for: Nausea, Vomiting, Abdominal Pain, Diarrhea, Constipation Genitourinary Male: Negative for: Dysuria, Frequency, Hematuria Musculoskeletal: Negative for: Back Pain, Leg Pain Neurological: Negative for: Weakness, Numbness Physical Exam - Reviewed Nursing Documentation Reviewed: Yes Vital Signs Reviewed: Yes - Physical Exam Appears: Positive for: Non-toxic, No Acute Distress Head Exam: Positive for: ATRAUMATIC, NORMAL INSPECTION, NORMOCEPHALIC Skin: Positive for: Normal Color Eye Exam: Positive for: Normal appearance Neck: Positive for: Supple Cardiovascular/Chest: Positive for: Regular Rate, Rhythm. Negative for: Chest Non Tender (+ tenderness to right last rib anteriorly; no ecchymosis noted) Respiratory: Positive for: Normal Breath Sounds. Negative for: Decreased Breath Sounds, Accessory Muscle Use, Respiratory Distress Gastrointestinal/Abdominal: Positive for: Normal Exam, Soft. Negative for: Tenderness (RUQ), Guarding, Rebound Back: Positive for: Normal Inspection. Negative for: L CVA Tenderness, R CVA Tenderness Extremity: Positive for: Normal ROM. Negative for: Pedal Edema Neurologic/Psych: Positive for: Alert, Oriented. Negative for: Motor/Sensory Deficits - Laboratory Results Result Diagrams: 03/13/18 20:56 03/13/18 20:56 Interpretation Of Abn Labs: no acute - ECG ECG: Positive for: Interpreted By Me, Viewed By Me ECG Rhythm: Positive for: Normal QRS, Normal ST Segment, Sinus Rhythm O2 Sat by Pulse Oximetry: 96 (RA) Pulse Ox Interpretation: Normal - Radiology X-Ray: Interpreted by Me, Viewed By Me X-Ray Interpretation: No Acute Disease - Progress ED Course And Treament: 1043: Stable. AAOx3. Pain free. Pt. pain on the r anterior last rib, point tender. Not likely cardiac based on physical and history. Pt. to fu with pcp. Medical Decision Making Medical Decision Making: Impression: Right lower rib pain Plan: -- XR Right Ribs and PA Chest -- Labs -- EKG -- Toradol 15mg IV -- IV Fluids Scribe Attestation: Documented by Starr Parsons, acting as a scribe for Bill Rodríguez MD. Provider Scribe Attestation: All medical record entries made by the Scribe were at my direction and personally dictated by me. I have reviewed the chart and agree that the record accurately reflects my personal performance of the history, physical exam, medical decision making, and the department course for this patient. I have also personally directed, reviewed, and agree with the discharge instructions and disposition. Disposition - Clinical Impression Clinical Impression: Chest wall pain - Patient ED Disposition Is Patient to be Admitted: No Counseled Patient/Family Regarding: Studies Performed, Diagnosis, Need For Followup, Rx Given - Disposition Referrals: [facility] [Outside] - 03/15/18 Disposition: Routine/Home Disposition Time: 22:44 Condition: STABLE Additional Instructions: Return if not better in 3 days. Prescriptions: Ibuprofen [Motrin] 600 mg PO TID 7 Days tab Instructions: Chest Pain
[2018-03-13 21:18] LABS: BASO % 0.7 % (0.0-2.0); EOS # 0.3 K/uL (0.0-0.7); HEMOGLOBIN 12.2 g/dL (12.0-18.0); LYMPH # 2.1 K/uL (1.0-4.3); LYMPH % 31.6 % (20.0-40.0); MEAN CELL VOLUME 100.4 fl (80.0-94.0); MEAN CORPUSCULAR HEMOGLOBIN 33.8 pg (27.0-31.0); MEAN CORPUSCULAR HGB CONC 33.7 g/dL (33.0-37.0); MEAN PLATELET VOLUME 7.9 fl (7.2-11.7); MONO # 0.6 K/uL (0.0-0.8); MONO % 9.3 % (0.0-10.0); NEUT # 3.6 K/uL (1.8-7.0); NEUT % 53.4 % (50.0-75.0); RBC 3.62 Mil/uL (4.40-5.90); RED CELL DISTRIBUTION WIDTH 13.6 % (11.5-14.5); WHITE BLOOD COUNT 6.7 K/uL (4.8-10.8)
[2018-03-13 21:27] LABS: BLOOD UREA NITROGEN 22 mg/dl (9-20); CALCIUM 9.1 mg/dL (8.4-10.2); GFR AFRICAN-AMERICAN > 60; GFR NON-AFRICAN AMERICAN > 60; LIPASE 106 U/L (23-300)
[2018-03-13 21:29] LABS: PARTIAL THROMBOPLASTIN TIME 36.2 Seconds (25.6-37.1)
[2018-03-13 22:58] VITALS: BP 132/80; PULSE 54; RESP 20; TEMP 97.9; O2SAT 98
--- NOTE | 2018-03-14 09:34 | RAD ---
Date of service: 03/13/2018 PROCEDURE: Radiographs of the Chest and Right Ribs. HISTORY: pain COMPARISON: Chest radiograph dated 03/30/2017. TECHNIQUE: Frontal radiograph of the chest and multiple oblique radiographs of the right ribs were obtained. FINDINGS: RIGHT RIBS: No fracture or focal lesion visualized. LUNGS: Clear. PLEURA: No pneumothorax or pleural fluid. CARDIOVASCULAR: Atherosclerotic aortic calcifications. Cardiomediastinal silhouette stably prominent. OTHER FINDINGS: None. IMPRESSION: Unremarkable radiographs of the chest and right ribs. No right rib fracture.
--- NOTE | 2018-03-14 18:23 | CARD ---
APPROVED REPORT Date of service: 03/13/2018 EKG Measurement Heart [id number] <Conclusion> Sinus rhythm with 1st degree AV block Left axis deviation Nonspecific intraventricular block Abnormal ECG
== END 2018-03-13 23:00 | disposition home or self-care (01) ==
LOC: H.ER 19:43
DX: R78.1 Finding of opiate drug in blood (principal); E11.9 Type 2 diabetes mellitus without complications; I10 Essential (primary) hypertension; N40.0 Benign prostatic hyperplasia without lower urinary tract symptoms; G45.9 Transient cerebral ischemic attack, unspecified
CPT/HCPCS: 71101; 80048; 83690; 84484; 85025; 85610; 85730; 93005; 96374; 99283; J1885; J7040